=== PATIENT | female | born 1995 | race Caucasian/White ===

== ENCOUNTER 2022-03-16 15:54 | Inpatient (IN) | payer MEDICAID, SELFPAY ==
--- NOTE | ~2022-03-16 | CT_ITS ---
EXAMINATION: CT SOFT TISSUE NECK WITH CONTRAST CLINICAL INFORMATION: Sudden onset of right jaw pain/swelling. COMPARISON: There are no prior studies available for comparison. TECHNIQUE: Following the intravenous administration of 60 mL of Omnipaque 350 intravenous contrast, helical imaging was performed in the axial plane with generation of coronal and sagittal reformatted images. This CT examination was performed using dose optimization techniques as appropriate, variously including the following: *Automated exposure control *Adjustment of mA and/or kV according to patient size (this includes techniques or standardized protocols for targeted exams where dose is matched to indication/reason for exam; i.e. extremities or head) *Use of iterative reconstruction technique DLP: 310 mGy-cm FINDINGS: The right parotid gland is enlarged with heterogenous attenuation, extending over the right masseter muscle. There are no parotid calcifications. There is fluid extending along the left parotid tail down into the posterior right submandibular region. There are moderately prominent right level IB and IIA lymph nodes. There is also increased attenuation in the subcutaneous fat around the right parotid gland extending into the right mandibular region. Small lymph nodes are also noted at multiple levels in the neck bilaterally. The left parotid gland appears normal. The submandibular glands are atrophic bilaterally. No contour abnormality or pathologic enhancement is seen within the oral cavity or pharyngeal mucosal space. The laryngeal structures are normal. The parapharyngeal fat is preserved. The carotid sheath vasculature opacifies normally. No extra mucosal soft tissue mass or fluid collection is seen. No retropharyngeal fluid collection is seen. The thyroid gland is normal. The superior mediastinum is unremarkable. The lung apices are clear. There are a few small axillary lymph nodes bilaterally. The mastoid air cells are well-aerated. There is mild mucoperiosteal thickening in the bilateral maxillary sinuses. There are bilateral middle turbinate conchae bullosae with opacification and aerosolized secretions in the right middle turbinate. The temporomandibular joints are normal. The bilateral mandibular and maxillary 3rd molar teeth are erupting posteriorly. No osseous abnormalities are seen. The imaged portions of the brain parenchyma are unremarkable. CT/CT soft tissue neck w con IMPRESSION: 1. The right parotid gland is swollen, with surrounding fluid extending into the right submandibular gland, consistent with parotid sialoadenitis, and there are inflammatory changes in the subcutaneous fat. There are moderately prominent cervical lymph nodes on the right as described above. 2. Both submandibular glands are atrophic. The left parotid gland appears normal.
[2022-03-16 16:43] VITALS: BP 120/74; PULSE 120; RESP 15; TEMP 37; O2SAT 99; BMI 22.6
--- NOTE | 2022-03-16 19:42 | ED_ITS ---
HPI - General Adult General Chief complaint: General Medical Stated complaint: lump rt outer side of face Time Seen by Provider: 03/16/22 19:01 Source: patient Mode of arrival: ambulatory Limitations: language barrier (Tajik Speaking ) History of Present Illness HPI narrative: 26-year-old female who reports she is up-to-date on all immunizations denies recent travel or sick contacts who denies any medical history presenting to the ED with complaints of swelling to the right side of her face/jaw since yesterda y. She reports that she did not fall and has not had any injury to her face and was not assaulted, she denies any dental pain, she denies any trouble swallowing or breathing, she denies sore throat, she denies any drooling, she denies any posterior neck pain, or measured fevers. She denies any other symptoms complaints or concerns at this time. MD complaint: Right facial/jaw swelling Onset (ago): day(s) (Since yesterday) Location: face Radiation: non-radiation Severity: severe Severity scale (1-10): >10 Quality: aching and constant Pain Consistency: constant Relieving factors: none Exacerbating factors: other (Palpation) Associated symptoms: denies other symptoms Treatments prior to arrival: none Related Data Allergies Allergy/AdvReac Type Severity Reaction Status Date / Time No Known Allergies Allergy Verified 03/16/22 19:23 Review of Systems Review of Systems: Constitutional : + right facial swelling/pain, No Weight loss, No Fever, No Chills, No Night Sweats, No Fatigue, No Malaise ENT/Mouth : No Hearing loss, No Ear Pain, No Nasal Congestion, No Sinus Pain, No Hoarseness, No sore throat, No Rhinorrhea, No Swallowing Difficulty Eyes: No Eye Pain, No Swelling, No Redness, No Foreign Body, No Discharge, No Vision Changes Cardiovascular : No Chest Pain, No SOB, No Dyspnea on Exertion, No Orthopnea, No Edema, No Palpitations Respiratory : No Cough, No Sputum, No Wheezing, No Smoke Exposure, No Dyspnea Gastrointestinal : No Nausea, No Vomiting, No Diarrhea, No Constipation, No abdominal Pain, No Hematochezia, No Melena Genitourinary : no irregular bleeding, No Dysuria, No Urinary Frequency, No Hematuria, No Urinary Incontinence, No Urgency, No Flank Pain, No Urinary Flow Changes, No Hesitancy Musculoskeletal : No joint pain, No Myalgias, No Joint Swelling Skin : No Skin Lesions, No rash Neuro : No Weakness, No Numbness, No Paresthesias, No Loss of Consciousness, No Dizziness, No Headache Psych : No Anxiety/Panic, No Depression, No SI/HI/AH/VH, No Social Issues, Heme/Lymph: No Bruising, No Bleeding,No Lymphadenopathy Endocrine : No Polyuria, No Polydipsia, No Temperature Intolerance Yes all other systems are reviewed and are negative [facility], [facility] Past Medical History Attestation statement: The following information was validated with the patient. Source: old records reviewed and nursing notes reviewed Social History Social History Advance Directives: No Advance Directives Information Provided: No Physical Exam ED Vital Signs: Vital Signs - 24 hr 03/16/22 16:43 Temperature 98.6 F Pulse Rate 120 H Respiratory Rate 15 Blood Pressure 120/74 Pulse Oximetry 99 Oxygen Delivery Method Room Air BMI result Body Mass Index 22.6 vital signs have been reviewed as normal and appeared to be correct. Blood pressure normal. Heart rate 120. Respiration rate normal. Temperature normal. Oxygen saturation normal. Appearance: Alert. Oriented X3. No acute distress. Head: Normal external exam. Normocephalic. Atraumatic. Eyes: PERRLA. EOMI. Conjunctiva and sclera normal. Eyelids normal. ENT: EAC normal. TM's Normal. No tenderness palpation of the mastoids. Not consistent with mastoiditis. Pharynx normal. Uvula midline. Moist mucous membranes. No lesions/ulcerations or masses noted on the tongue. Normal voice. No trismus noted. No drooling noted. No muffled voice noted. Patient has moderate soft tissue swelling/tenderness palpation to the right face/jaw. No streaking/induration/fluctuance noted. Dentition: Patient does not have any dental caries and does not have any signs of dental trauma or dental pain. No erythema to the gingiva. Gingival within normal limits. No fluctuance. Not consistent with peritonsillar abscess. Not consistent with dental abscess. No salivary duct obstruction noted. Neck: Normal inspection. Neck supple. FROM. + right anterior cervical adenopathy. Thyroid Normal. No tracheal deviation noted. No crepitus is noted. No meningeal signs. No neck mass noted. No signs of trauma noted. CVS: Normal heart rate and rhythm. Heart sound normal. Pulses normal throughout. No murmurs/rales/gallops. Respiratory: No respiratory distress. Painless inspiration. Breath sounds normal. No wheezes/rales/rhonchi noted. Chest nontender. No crepitus is noted. No signs of trauma noted. No accessory muscle usage noted or decreased air movement noted. No signs of trauma. Back: Full range of motion noted. Nontender. Skin: Skin warm and dry. Normal skin color. Normal skin turgor. No suzanna hes/lesions/lacerations noted. Extremities: Extremities exhibit normal range of motion and nontender. Neuro: Oriented X 3. No motor deficit. No sensory deficit. Reflexes normal. Normal steady gait. No focal neuro deficits noted. CN's II-XII intact bilaterally? Vascular: + radial pulses/+ 2 distal pedal pulses/+2 dorsalis pedis b/l. Normal cap refill. No cyanosis noted to upper extremity nails and lower extremity toes nails. Course Course Course Narrative: 19:25pm - 26-year-old female presenting to the ED with complaints of swelling to the right side of her face/jaw since yesterday. Plan: Will obtain labs, CT scan of soft tissue neck with contrast, blood cultures, lactic acid in provide 30 mg of IV Toradol provide a L of IV fluids and re-evaluate. Reevaluation(s) Reevaluation #1: - labs reviewed patient with an elevated white blood cell count at 12,000. BUN 8. Total bilirubin 1.4. Total protein 9.8. Otherwise all other labs are within normal limits - CT scan of soft tissue neck revealed right parotid sialoadenitis with inflammatory changes and cervical lymphadenopathy on right side. No stone is noted. No abscess is noted. Therefore at this time will start the patient on Zosyn due to infection found at this time and admit. Patient understands agrees with this plan. Discussing this case with Dr. Hannon Time: 21:20 Medical Decision Making Medical Records Medical records reviewed: Yes I reviewed the patient's medical records. Lab Data Lab results reviewed: Yes I reviewed the patient's lab results. Result diagrams: 03/16/22 19:43 03/16/22 19:43 Labs: Lab Results 03/16/22 03/16/22 03/16/22 Range/Units 19:43 19:43 19:43 WBC 12.0 H (4.8-10.8) X10*3/uL RBC 5.00 (4.20-5.50) X10*6/uL Hgb 13.9 (12.0-16.0) g/dl Hct 42.6 (37.0-47.0) % MCV 85.2 (80.0-98.0) fL MCH 27.8 (27.0-33.0) pg MCHC 32.6 (31.0-35.0) g/dl RDW 13.2 (11.0-16.0) % Plt Count 262 (160-400) X10*3/uL MPV 10.2 (9.4-12.3) fL Immature Gran % (Auto) 0.3 (0.0-0.4) % Neut % (Auto) 84.0 H (45-73) % Lymph % (Auto) 10.1 L (20-40) % [place] % (Auto) 5.2 (2-11) % Eos % (Auto) 0.2 (0-4) % Baso % (Auto) 0.2 (0-2) % Lymph # (Auto) 1.2 (1.2-4.9) X10*3/uL [place] # (Auto) 0.6 (0.1-1.2) X10*3/uL Eos # (Auto) 0.0 (0.0-0.4) X10*3/uL Baso # (Auto) 0.0 (0.0-0.2) X10*3/uL Abs Immat Gran (auto) 0.04 H (0.00-0.03) X10*3/uL Absolute Neuts (auto) 10.1 H (2.0-8.3) x10*3/uL Absolute Nucleated RBC 0.000 (0.0-0.012) X10*3/uL Nucleated RBC % (auto) 0.0 (0.0-0.2) /100WBC Sodium 135 (135-145) mmol/L Potassium 3.8 (3.3-5.1) mmol/L Chloride 103 (96-108) mmol/L Carbon Dioxide 22 (22-29) mmol/L Anion Gap 14 (12-20) BUN 8 L (9-16) mg/dL Creatinine 0.75 (0.5-1.4) mg/dL Estim Creat Clear Calc 87.2 Estimated GFR > 60 Random Glucose 80 (60-115) mg/dL Lactic Acid 1.0 (0.5-2.0) mmol/L Calcium 9.0 (8.4-10.2) mg/dL Magnesium 2.0 (1.6-2.6) mg/dL Total Bilirubin 1.4 H (0.0-1.0) mg/dL AST 21 (5-31) U/L ALT 10 (0-31) U/L Alkaline Phosphatase 70 (39-117) U/L Total Protein 9.8 H (6.5-8.0) g/dL Albumin 4.5 (3.5-5.0) g/dL Beta HCG, Quant < 2 mIU/mL Imaging Data Soft tissue neck CT with IV contrast: Attestation: I personally reviewed and interpreted this imaging study as follows: Radiologist's impression: FINDINGS: The right parotid gland is enlarged with heterogenous attenuation, extending over the right masseter muscle. There are no parotid calcifications. There is fluid extending along the left parotid tail down into the posterior right submandibular region. There are moderately prominent right level IB and IIA lymph nodes. There is also increased attenuation in the subcutaneous fat around the right parotid gland extending into the right mandibular region. Small lymph nodes are also noted at multiple levels in the neck bilaterally. The left parotid gland appears normal. The submandibular glands are atrophic bilaterally. No contour abnormality or pathologic enhancement is seen within the oral cavity or pharyngeal mucosal space. The laryngeal structures are normal. The parapharyngeal fat is preserved. The carotid sheath vasculature opacifies normally. No extra mucosal soft tissue mass or fluid collection is seen. No retropharyngeal fluid collection is seen. The thyroid gland is normal. The superior mediastinum is unremarkable. The lung apices are clear. There are a few small axillary lymph nodes bilaterally. The mastoid air cells are well-aerated. There is mild mucoperiosteal thickening in the bilateral maxillary sinuses. There are bilateral middle turbinate conchae bullosae with opacification and aerosolized secretions in the right middle turbinate. The temporomandibular joints are normal. The bilateral mandibular and maxillary 3rd molar teeth are erupting posteriorly. No osseous abnormalities are seen. The imaged portions of the brain parenchyma are unremarkable. CT/CT soft tissue neck w con IMPRESSION: ?1. The right parotid gland is swollen, with surrounding fluid extending into the right submandibular gland, consistent with parotid sialoadenitis, and there are inflammatory changes in the subcutaneous fat. There are moderately prominent cervical lymph nodes on the right as described above. ? 2. Both submandibular glands are atrophic. The left parotid gland appears normal. Critical Care Time Critical Care Time Critical Care Time: Yes Total Critical Care Time: 60 Attestation: I personally attest to this time spent taking care of the patient Discharge Plan Discharge Clinical Impression: Acute sialoadenitis Patient Disposition: Admitted As Inpatient
[2022-03-16] MEDS: Ketorolac Tromethamine 30 MG/ML VIAL IVPUSH (19:47)
[2022-03-16 19:50] LABS: MANUAL DIFF FLAG NO
[2022-03-16 19:51] LABS: Basophils Percent Auto 0.2 % (0-2); Eosinophils Percent Auto 0.2 % (0-4); Hematocrit 42.6 % (37.0-47.0); Hemoglobin 13.9 g/dl (12.0-16.0); Imm Gran Abs Auto 0.04 X10*3/uL (0.00-0.03); Imm Gran Pct Auto 0.3 % (0.0-0.4); Lymphocytes Absolute Auto 1.2 X10*3/uL (1.2-4.9); Lymphocytes Percent Auto 10.1 % (20-40); Mean Corpuscular HGB Conc 32.6 g/dl (31.0-35.0); Mean Corpuscular Hemoglobin 27.8 pg (27.0-33.0); Mean Corpuscular Volume 85.2 fL (80.0-98.0); Mean Platelet Volume 10.2 fL (9.4-12.3); Monocytes Absolute Auto 0.6 X10*3/uL (0.1-1.2); Monocytes Percent Auto 5.2 % (2-11); Neutrophils Absolute Auto 10.1 x10*3/uL (2.0-8.3); Platelet Count 262 X10*3/uL (160-400); Red Cell Distribution Width 13.2 % (11.0-16.0)
[2022-03-16 20:10] LABS: Alanine Aminotransferase 10 U/L (0-31); Albumin Level 4.5 g/dL (3.5-5.0); Alkaline Phosphatase 70 U/L (39-117); Anion Gap 14 (12-20); Aspartate Amino Transferase 21 U/L (5-31); Bilirubin Total 1.4 mg/dL (0.0-1.0); Blood Urea Nitrogen 8 mg/dL (9-16); Carbon Dioxide 22 mmol/L (22-29); Chloride 103 mmol/L (96-108); Creatinine Clr Calc Pharmacy 87.2; Estimated Glomerular Filt Rate > 60; Glucose Random 80 mg/dL (60-115); Potassium 3.8 mmol/L (3.3-5.1); Sodium 135 mmol/L (135-145); Total Protein 9.8 g/dL (6.5-8.0)
[2022-03-16 20:17] LABS: HCG Quantitative < 2 mIU/mL
[2022-03-16] MEDS: iohexoL 350 MG/ML 100 ML INFUS..BTL IV (20:40)
[2022-03-16] MEDS: 0.9 % Sodium Chloride 1,000 ML 999 ML IVCONT (21:10)
[2022-03-16] MEDS: Piperacillin Sodium/Tazobactam 2.25 GM in 0.9 % Sodium Chloride 50 ML IV (21:37)
--- NOTE | 2022-03-16 21:57 | PHA.MEDREC ---
Pharmacy Consult ? Medication Reconciliation Pharmacy has completed the medication reconciliation.
--- NOTE | 2022-03-16 23:46 | P.HPHOSP_ITS ---
History of Present Illness Date of Service: 03/16/22 Chief Complaint: mouth swelling 26-year-old female who speaks [place] Rican only, history is obtained with the help of an analytics intern presents to the hospital with complaints of right jaw, as well as behind the ear pain. Reports that the pain started 2 days ago, 06/27, nonradiating, constant, not associated with any difficulty swallowing, denies any fever chills. no chest pain, shortness of breath, no abdominal pain nausea vomiting, diarrhea constipation, no urinary symptoms and no lower extremity edema. On arrival to the ED patient found to have a heart rate of 120 otherwise unremarkable vitals Labs are significant for WBC count of 12, labs otherwise unremarkable Soft tissue neck CT showed right parotid gland swollen, surrounding fluid extending into the right submandibular gland consistent with parotid sialoadenitis and phlegm a edgar changes of the subcutaneous fat. Patient started on IV antibiotics and will be admitted for further management Review of Systems Review of Systems: Yes all other systems are reviewed and are negative [facility] Medical History (Updated 03/17/22 @ 06:18 by Tameka Hannon MD) No pertinent past medical history Family History (Updated 03/17/22 @ 06:18 by Tameka Hannon MD) Other No family history of coronary artery disease Surgical History (Updated 03/17/22 @ 06:18 by Tameka Hannon MD) No pertinent past surgical history Social History (Updated 03/17/22 @ 06:18 by Tameka Hannon MD) Alcohol intake: current Patient Tobacco Use Status: Never used Tobacco Use of substances other than those prescribed or required for medical reasons: No Advance Directives: No Advance Directives Information Provided: No Meds Allergies Allergy/AdvReac Type Severity Reaction Status Date / Time No Known Allergies Allergy Verified 03/16/22 19:23 Active Medications: Current Medications Pharmacy Consult (Consult Rx Perform Med Rec) 1 each MISCELLANE ONCE PRN PRN Reason: Consult order Physical Exam Vital Signs and Narrative: Vital Signs: Last Vital Signs Temp 98.6 F 03/16/22 16:43 Pulse 120 H 03/16/22 16:43 Resp 15 03/16/22 16:43 BP 120/74 03/16/22 16:43 Pulse Ox 99 03/16/22 16:43 O2 Del Method 03/16/22 16:43 BMI result Body Mass Index 22.6 Const: General: cooperative and no acute distress Orientation/consciousness: patient oriented x3 HEENT: Other: Swollen right, tender on palpation around the parotid to the submandibular region Eyes: General: appearance normal, both eyes and all related structures Pupils: Equal, round and reactive pupils present Resp: Effort & Inspection: normal respiratory effort Auscultation: clear to auscultation bilaterally Cardio: Rate: regular rate Rhythm: regular rhythm GI: Palpation (GI): Soft to palpation Auscultation: normal bowel sounds Skin: General skin exam: no rashes or lesions noted Neuro: General: patient oriented x3 Cranial nerves: Yes Equal, round and reactive pupils present Cognition (Neuro): normal cognition Extrem: General: Yes normal to inspection and Yes no pedal edema Results Labs CBC and Chem 7: 03/16/22 19:43 03/16/22 19:43 Labs: Laboratory Results - last 24 hr 03/16/22 03/16/22 03/16/22 19:43 19:43 19:43 MCV 85.2 MCH 27.8 MCHC 32.6 RDW 13.2 Plt Count 262 MPV 10.2 Immature Gran % (Auto) 0.3 Neut % (Auto) 84.0 H Lymph % (Auto) 10.1 L [place] % (Auto) 5.2 Eos % (Auto) 0.2 Baso % (Auto) 0.2 Lymph # (Auto) 1.2 [place] # (Auto) 0.6 Eos # (Auto) 0.0 Baso # (Auto) 0.0 Abs Immat Gran (auto) 0.04 H Absolute Neuts (auto) 10.1 H Absolute Nucleated RBC 0.000 Nucleated RBC % (auto) 0.0 Anion Gap 14 Estim Creat Clear Calc 87.2 Estimated GFR > 60 Random Glucose 80 Lactic Acid 1.0 Calcium 9.0 Magnesium 2.0 Total Bilirubin 1.4 H AST 21 ALT 10 Alkaline Phosphatase 70 Total Protein 9.8 H Albumin 4.5 Beta HCG, Quant < 2 Imaging Radiologist's Impressions: Impressions Soft Tissue Neck CT 03/16/22 20:44 IMPRESSION: 1. The right parotid gland is swollen, with surrounding fluid extending into the right submandibular gland, consistent with parotid sialoadenitis, and there are inflammatory changes in the subcutaneous fat. There are moderately prominent cervical lymph nodes on the right as described above. 2. Both submandibular glands are atrophic. The left parotid gland appears normal. Assessment and Plan (1) Acute sialoadenitis: Status: Acute Plan 26-year-old female with no past medical history presents to the hospital with complaints of right face swelling and pain found to have parotid gland sialoadenitis # acute Sialoadentitis - hemodynamically stable, has tachycardia, leukocytosis - wheelchair with IV antibiotics - follow cultures DVT prophylaxis: Early ambulation Quality Stroke Does the patient have a stroke diagnosis?: No VTE Prior VTE?: No VTE Risk Level:: Medical - low VTE Device Contraindication: Treatment Not Indicated VTE Drug Contraindication: Treatment Not Indicated
[2022-03-17] MEDS: Ampicillin Sodium/Sulbactam Na 3 GM in 0.9 % Sodium Chloride 100 ML IV ×3 (00:11→18:28)
[2022-03-17 01:07] LABS: COVID-19 Test Negative (Negative); IDNOW Serial# 16C4AD1C
[2022-03-17] MEDS: metroNIDAZOLE/NS 500 MG/100 ML PIGGYBACK 100 MG IV ×3 (01:43→19:07)
[2022-03-17 02:21] VITALS: BP 109/65; PULSE 105; RESP 18; TEMP 37.4; O2SAT 100
[2022-03-17 06:19] VITALS: BP 95/45; PULSE 87; RESP 18; TEMP 37.8; O2SAT 99
[2022-03-17] MEDS: Acetaminophen 325 MG TABLET 650 MG PO (06:28)
[2022-03-17 06:30] LABS: MANUAL DIFF FLAG NO
[2022-03-17 06:49] LABS: Basophils Percent Auto 0.3 % (0-2); Eosinophils Percent Auto 0.4 % (0-4); Hemoglobin 11.4 g/dl (12.0-16.0); Imm Gran Abs Auto 0.03 X10*3/uL (0.00-0.03); Imm Gran Pct Auto 0.4 % (0.0-0.4); Lymphocytes Percent Auto 12.9 % (20-40); Mean Corpuscular HGB Conc 32.6 g/dl (31.0-35.0); Mean Corpuscular Hemoglobin 27.7 pg (27.0-33.0); Mean Corpuscular Volume 85.2 fL (80.0-98.0); Mean Platelet Volume 10.4 fL (9.4-12.3); Monocytes Absolute Auto 0.5 X10*3/uL (0.1-1.2); Monocytes Percent Auto 6.5 % (2-11); Neutrophils Percent Auto 79.5 % (45-73); Platelet Count 203 X10*3/uL (160-400); Red Blood Count 4.11 X10*6/uL (4.20-5.50); Red Cell Distribution Width 13.2 % (11.0-16.0); White Blood Count 7.6 X10*3/uL (4.8-10.8)
[2022-03-17 07:07] LABS: Anion Gap 10 (12-20); Blood Urea Nitrogen 8 mg/dL (9-16); Carbon Dioxide 21 mmol/L (22-29); Chloride 108 mmol/L (96-108); Creatinine Clr Calc Pharmacy 93.5; Estimated Glomerular Filt Rate > 60; Glucose Random 83 mg/dL (60-115); Potassium 3.9 mmol/L (3.3-5.1); Sodium 135 mmol/L (135-145)
[2022-03-17 07:28] LABS: Calcium 8.3 mg/dL (8.4-10.2)
--- NOTE | 2022-03-17 08:57 | PM.DS ---
DS: Providers Provider Date of Service: 03/19/22 Date of admission: 03/17/22 04:24 Primary care physician: None Physician DS: Diagnosis Discharge Diagnosis (1) Acute sialoadenitis: Status: Acute DS: Summary Hospital Course Hospital Course: Chief Complaint: mouth swelling 26-year-old female who speaks Swedish only, history is obtained with the help of an director of math presents to the hospital with complaints of right jaw, as well as behind the ear pain.? Reports that the pain started 2 days ago, 06/27, nonradiating, constant, not associated with any difficulty swallowing, denies any fever chills.? ?no chest pain, shortness of breath, no abdominal pain nausea vomiting, diarrhea constipation, no urinary symptoms and no lower extremity edema.? On arrival to the ED patient found to have a heart rate of 120 otherwise unremarkable vitals Labs are significant for WBC count of 12, labs otherwise unremarkable Soft tissue neck CT showed right parotid gland swollen, surrounding fluid extending into the right submandibular gland consistent with parotid sialoadenitis and phlegm a edgar changes of the subcutaneous fat. Hospital course; Patient was observed in the hospital and given IV Unassyn, there is no swelling in the mouth, she has been having intermittent fever that has now resolved and no fever over 24 hours. The swelling is going down, she has no trouble breathing or eating, WBC has normalized now, there is no fever. Will transition to oral antibiotics (Augmentin) for 7 days and advise outpatient ENT follopw up. Oxycodone for pain as needed Time Spent with Patient Time attestation: Total time spent providing and/or coordinating discharge services: Discharge coordination time: Greater than 30 minutes Quality: Safe Use of Opioids Does Pt have an Active Cancer Diagnosis on the Problem List?: No Quality: Stroke Does the patient have a stroke diagnosis?: No Physical Exam Vital Signs: Vital Signs: Last Vital Signs Temp 100.1 F 03/17/22 06:19 Pulse 87 03/17/22 06:19 Resp 18 03/17/22 06:19 BP 95/45 L 03/17/22 06:19 Pulse Ox 99 03/17/22 06:19 O2 Del Method 03/17/22 06:19 BMI result Body Mass Index 22.6 Const: Other: General: AO X 3, no acute distress HEENT: slight swelling of right jaw area Resp: CTA bilateral CVS: S1,S2,RRR GI: +BS, NT, no distention Skin: No rash Neuro: motor grossly intact Psych: appropriate affect DS: Data Data Completed and Pending Labs on day of discharge: Laboratory Results - last 24 hr 03/16/22 03/16/22 03/16/22 19:43 19:43 19:43 WBC 12.0 H RBC 5.00 Hgb 13.9 Hct 42.6 MCV 85.2 MCH 27.8 MCHC 32.6 RDW 13.2 Plt Count 262 MPV 10.2 Immature Gran % (Auto) 0.3 Neut % (Auto) 84.0 H Lymph % (Auto) 10.1 L [place] % (Auto) 5.2 Eos % (Auto) 0.2 Baso % (Auto) 0.2 Lymph # (Auto) 1.2 [place] # (Auto) 0.6 Eos # (Auto) 0.0 Baso # (Auto) 0.0 Abs Immat Gran (auto) 0.04 H Absolute Neuts (auto) 10.1 H Absolute Nucleated RBC 0.000 Nucleated RBC % (auto) 0.0 Sodium 135 Potassium 3.8 Chloride 103 Carbon Dioxide 22 Anion Gap 14 BUN 8 L Creatinine 0.75 Estim Creat Clear Calc 87.2 Estimated GFR > 60 Random Glucose 80 Lactic Acid 1.0 Calcium 9.0 Magnesium 2.0 Total Bilirubin 1.4 H AST 21 ALT 10 Alkaline Phosphatase 70 Total Protein 9.8 H Albumin 4.5 Beta HCG, Quant < 2 COVID-19 ([facility]) COVID-19 Clin Com 03/17/22 03/17/22 03/17/22 00:41 06:24 06:24 WBC 7.6 RBC 4.11 L Hgb 11.4 L Hct 35.0 L MCV 85.2 MCH 27.7 MCHC 32.6 RDW 13.2 Plt Count 203 MPV 10.4 Immature Gran % (Auto) 0.4 Neut % (Auto) 79.5 H Lymph % (Auto) 12.9 L [place] % (Auto) 6.5 Eos % (Auto) 0.4 Baso % (Auto) 0.3 Lymph # (Auto) 1.0 L [place] # (Auto) 0.5 Eos # (Auto) 0.0 Baso # (Auto) 0.0 Abs Immat Gran (auto) 0.03 Absolute Neuts (auto) 6.0 Absolute Nucleated RBC 0.000 Nucleated RBC % (auto) 0.0 Sodium 135 Potassium 3.9 Chloride 108 Carbon Dioxide 21 L Anion Gap 10 L BUN 8 L Creatinine 0.70 Estim Creat Clear Calc 93.5 Estimated GFR > 60 Random Glucose 83 Lactic Acid Calcium 8.3 L D Magnesium Total Bilirubin AST ALT Alkaline Phosphatase Total Protein Albumin Beta HCG, Quant COVID-19 ([facility]) Negative COVID-19 Clin Com See Note Discharge Plan Discharge Anticipated Discharge Date/Time: 03/19/22 08:47 Patient Disposition: Home, Self-Care Discharge Diagnosis: acute sialoadenitis Referrals: Physician,None [Primary Care Provider] - 1 Week Discharge Medications: New oxycodone 5 mg Tablet 5 mg PO Q6H PRN (Reason: Pain, Severe (Pain Scale 7-10)) Qty: 15 0RF Rx Instructions: Partial Fill upon patient request. amoxicillin-pot clavulanate 875-125 mg tablet 1 tab PO BID Qty: 14 0RF Discharge Orders: Discharge Order (Routine); Ordered 03/19/22 Ordered By: Bill Rivas Diet: Advance to usual diet Activity on Discharge: As tolerated Stand Alone Forms: Patient Portal Discharge page Care Plan Goals: Full recovery from sialodenitis Health Concerns: sialodenitis Plan of Treatment: Take Agumentin as recommending, take oxycodone for pain, follow up with your DrDenis and ENT doctor, come to emergency if you have any trouble eating, swallowing of breathing Call ENT Dr. Kwok's office on Monday for outpatient number [phone].. Assessment: As above
[2022-03-17] MEDS: 0.9 % Sodium Chloride Flush 3 ML SYRINGE IVFLUSH ×2 (09:15→18:38)
[2022-03-17] MEDS: oxyCODONE HCl Immed Release 5 MG TABLET PO ×2 (10:36→23:47)
--- NOTE | 2022-03-17 10:45 | PM.EVENT ---
Event Note Date of Service: 03/17/22 Event Note: Has persistent pain and temps increasing, so will watch on IV Abx overnight
[2022-03-17 12:06] VITALS: BP 101/59; PULSE 98; RESP 17; TEMP 36.9; O2SAT 100
[2022-03-17 13:00] VITALS: RESP 17
--- NOTE | 2022-03-17 13:32 | MHC.CM.PN ---
PT REPORTS SHE LIVES WITH A FRIEND AND IS FULLY INDEPENDENT PT HAS NO DME, NO SERVICES AND WORKS PT CASE[place] NOT HAVE HEALTH INSURANCE OR A PCP SHE IS AWARE A REFERRAL WILL BE SENT TO [facility] [place] [facility] CURRENT DC PLAN IS HOME WITH NO SERVICES PT TO ARRANGE TRANSPORT
--- NOTE | 2022-03-17 16:15 | PC.NURSE ---
SPOKE WITH WITH TIMBER RIDER, PT IS GOING TO BE DISCHARGED. AWAITING FOR DR BLACK FOR DISCHARGE.
[2022-03-17 18:34] VITALS: BP 114/50; PULSE 108; RESP 18; TEMP 37.7; O2SAT 100
[2022-03-18] VITALS: BP 93/57; PULSE 97; RESP 17; TEMP 38.5; O2SAT 96
[2022-03-18] MEDS: Ampicillin Sodium/Sulbactam Na 3 GM in 0.9 % Sodium Chloride 100 ML IV ×3 (00:57→16:47)
[2022-03-18] MEDS: 0.9 % Sodium Chloride Flush 3 ML SYRINGE IVFLUSH ×3 (00:57→12:10)
[2022-03-18] MEDS: metroNIDAZOLE/NS 500 MG/100 ML PIGGYBACK 100 MG IV ×2 (02:49→10:25)
[2022-03-18 03:58] VITALS: BP 97/57; PULSE 96; RESP 18; TEMP 38.2; O2SAT 98
[2022-03-18 07:56] VITALS: BP 93/51; PULSE 76; RESP 18; TEMP 38.7; O2SAT 98
[2022-03-18] MEDS: Acetaminophen 325 MG TABLET 650 MG PO (09:29)
--- NOTE | 2022-03-18 09:41 | P.PNIM_ITS ---
Subjective Subjective Date of Service: 03/18/22 Interval History: f/u on parotitis interval history: persitent fever up to 101 this morning Review of Systems right jaw pain Physical Exam Vital Signs: Vital Signs: Last Vital Signs Temp 101.6 F H 03/18/22 07:56 Pulse 76 03/18/22 07:56 Resp 18 03/18/22 07:56 BP 93/51 L 03/18/22 07:56 Pulse Ox 98 03/18/22 07:56 O2 Del Method 03/18/22 07:56 BMI result Body Mass Index 22.6 Const: Other: General: AO X 3, no acute distress HEENT: slight swelling of right jaw area Resp: CTA bilateral CVS: S1,S2,RRR GI: +BS, NT, no distention Skin: No rash Neuro: motor grossly intact Psych: appropriate affect Objective Data Active Medications Acetaminophen (Acetaminophen 325 Mg Tablet) 650 mg PO Q6H PRN PRN Reason: Pain, Mild (Pain Scale 1-3) Last Admin: 03/18/22 09:29 Dose: 650 mg Documented By: YANG Metronidazole (Flagyl) 500 mg in 100 mls @ 100 mls/hr IV Q8H [facility] Last Infusion: 03/18/22 03:59 Dose: 0 mls/hr Documented By: TRACI Ampicillin Sodium/Sulbactam (Sodium 3 gm/ Sodium Chloride) 100 mls @ 200 mls/hr IV Q8H [facility] Last Admin: 03/18/22 09:26 Dose: 200 mls/hr Documented By: YANG Ondansetron HCl (Ondansetron Hcl 4 Mg/2 Ml Vial) 4 mg IVPUSH Q8H PRN PRN Reason: Nausea and Vomiting Oxycodone HCl (Oxycodone Hcl Immed Release 5 Mg Tablet) 5 mg PO Q6H PRN PRN Reason: Pain, Severe (Pain Scale 7-10) Last Admin: 03/17/22 23:47 Dose: 5 mg Documented By: MARI Pharmacy Consult (Consult Rx Perform Med Rec) 1 each MISCELLANE ONCE PRN PRN Reason: Consult order Sodium Chloride (0.9 % Sodium Chloride Flush 3 Ml Syringe) 3 ml IVFLUSH QSHIFT [facility] Last Admin: 03/18/22 09:27 Dose: 3 ml Documented By: YANG Labs CBC & Chem 7: 03/17/22 06:24 03/17/22 06:24 Microbiology Microbiology Results: Microbiology 03/16/22 20:17 Blood Culture - Preliminary Blood - Venous No growth after 24 hours. 03/16/22 19:43 Blood Culture - Preliminary Blood - Venous No growth after 24 hours. Assessment and Plan (1) Acute sialoadenitis: Status: Acute Plan 26-year-old female with no past medical history presents to the hospital with complaints of right face swelling and pain found to have parotid gland sialoadenitis # acute Sialoadentitis/parotitiis - hemodynamically stable, has tachycardia, leukocytosis - continue IV Zosyn and Metronidazole - fnegative cultures at 24 -ID consult DVT prophylaxis: Early ambulation Quality Stroke Does the patient have a stroke diagnosis?: No VTE Prior VTE?: No VTE Risk Level:: Medical - low VTE Device Contraindication: Treatment Not Indicated VTE Drug Contraindication: Treatment Not Indicated
[2022-03-18 12:00] VITALS: BP 104/57; PULSE 78; RESP 18; TEMP 36.6; O2SAT 99
--- NOTE | 2022-03-18 12:55 | P.CNID_ITS ---
History of Present Illness Data of Consult Service Date: 03/18/22 Requesting physician: Bill Rivas Primary Care Provider: None Physician HPI Reason for consult: sepsis,parotitis She presents with two days swelling and pain right cheek. She has CT right parotid sialodenitis and enlargement with fluid. Overnight she has temperature of 101.3 and pulse 108. Review of Systems Review of Systems: Yes all other systems are reviewed and are negative PMFSH Past Medical History Medical History (Updated 03/18/22 @ 12:58 by Rosaura Sosa MD) No pertinent past medical history Sepsis Family History Family History Other No family history of coronary artery disease Family history: reviewed and not pertinent Surgical History Surgical History No pertinent past surgical history Social History Social History Household Members: Family Housing: Apartment Do you presently have visiting nurse or other home services: No Alcohol intake: current Patient Tobacco Use Status: Never used Tobacco service: No Current occupational status: employed Meds Allergies Allergy/AdvReac Type Severity Reaction Status Date / Time No Known Allergies Allergy Verified 03/16/22 19:23 Active Medications: Current Medications Acetaminophen (Acetaminophen 325 Mg Tablet) 650 mg PO Q6H PRN PRN Reason: Pain, Mild (Pain Scale 1-3) Last Admin: 03/18/22 09:29 Dose: 650 mg Ampicillin Sodium/Sulbactam (Sodium 3 gm/ Sodium Chloride) 100 mls @ 200 mls/hr IV Q8H [facility] Last Infusion: 03/18/22 11:00 Dose: Infused Ondansetron HCl (Ondansetron Hcl 4 Mg/2 Ml Vial) 4 mg IVPUSH Q8H PRN PRN Reason: Nausea and Vomiting Oxycodone HCl (Oxycodone Hcl Immed Release 5 Mg Tablet) 5 mg PO Q6H PRN PRN Reason: Pain, Severe (Pain Scale 7-10) Last Admin: 03/17/22 23:47 Dose: 5 mg Pharmacy Consult (Consult Rx Perform Med Rec) 1 each MISCELLANE ONCE PRN PRN Reason: Consult order Sodium Chloride (0.9 % Sodium Chloride Flush 3 Ml Syringe) 3 ml IVFLUSH QSHIFT [facility] Last Admin: 03/18/22 12:10 Dose: 3 ml Physical Exam Vital Signs: Vital Signs: Last Vital Signs Temp 98 F 03/18/22 12:00 Pulse 78 03/18/22 12:00 Resp 18 03/18/22 12:00 BP 104/57 L 03/18/22 12:00 Pulse Ox 99 03/18/22 12:00 O2 Del Method 03/18/22 12:00 BMI result Body Mass Index 22.6 Const: General: cooperative HEENT: Other: right parotid facial swelling and pain,can open mouth Mouth: Normal oral and palatal mucosa present Teeth and gingiva: dentition normal Eyes: General: appearance normal, both eyes and all related structures Pupils: Equal, round and reactive pupils present Resp: Effort & Inspection: normal respiratory effort Cardio: Rate: regular rate Rhythm: regular rhythm GI: Palpation (GI): Soft to palpation and nontender : General: Yes no CVA tenderness Back/Spine/Pelvis: Back: no CVA tenderness Skin: General skin exam: no rashes or lesions noted Neuro: General: moves all extremities Cranial nerves: Yes Equal, round and reactive pupils present Extrem: General: Yes normal to inspection Psych: Appearance: grossly normal Results Labs CBC & Chem 7: 03/17/22 06:24 03/17/22 06:24 Microbiology Microbiology Results: Microbiology 03/16/22 20:17 Blood - Venous Blood Culture - Preliminary No growth after 24 hours. 03/16/22 19:43 Blood - Venous Blood Culture - Preliminary No growth after 24 hours. Assessment and Plan (1) Acute sialoadenitis: Status: Acute (2) Sepsis: Status: Acute patient has fever to 101 and pulse 108 sialdodenitis with fever likely cause she has been on unasyn,rarely MRSA cause HIV can be cause Plan Would continue Unasyn If temperature over 100.5 would add Vancomycin. Check HIV test Probable Augmentin for a week with outpatient followup when improved (no temp above 100.5 for 24 hours)
[2022-03-18 16:00] VITALS: BP 100/61; PULSE 83; RESP 16; TEMP 37.1; O2SAT 99
[2022-03-18 20:00] VITALS: BP 101/62; PULSE 89; RESP 16; TEMP 37.4; O2SAT 98
[2022-03-19] VITALS: BP 96/61; PULSE 90; RESP 14; TEMP 37.4; O2SAT 100
[2022-03-19] MEDS: Ampicillin Sodium/Sulbactam Na 3 GM in 0.9 % Sodium Chloride 100 ML IV (02:55)
[2022-03-19] MEDS: 0.9 % Sodium Chloride Flush 3 ML SYRINGE IVFLUSH (02:55)
[2022-03-19 03:55] VITALS: BP 95/61; PULSE 94; RESP 16; TEMP 37.3; O2SAT 99
[2022-03-19 08:00] VITALS: BP 100/61; PULSE 106; RESP 18; TEMP 37.3; O2SAT 100
--- NOTE | 2022-03-19 10:08 | MHC.CM.PN ---
PT MEDICALLY CLEARED FOR D/C HOME NO SERVICES, PT WILL ARRANGE TRANSPORT
[2022-03-22 04:07] LABS: HIV AB/AG Nonreactive (Nonreactive)
== END 2022-03-19 11:20 | disposition home or self-care (01) | DRG 115 ==
LOC: HO.ED 21:23 → HO.EDOVER 03-17 04:29 → HO.S3 03-17 22:38
PROVIDERS: Internal Medicine; Physician Assistant Medical; Admitting Provider Internal Medicine; Emergency Provider Emergency Medicine; Visit Provider Internal Medicine
DX: K11.21 Acute sialoadenitis (principal); Z20.822 Contact with and (suspected) exposure to COVID-19
CPT/HCPCS: 36415; 70491; 80048; 80053; 83605; 83735; 84702; 85025; 87040; 87389; 87635; 96361; 96374; 96375; 99218; 99285; J0295; J1885; J2543; Q9967

== ENCOUNTER 2022-03-27 14:14 | Emergency (ER) | payer MEDICAID, SELFPAY ==
[2022-03-27 14:16] VITALS: BP 109/69; PULSE 73; RESP 16; TEMP 36.9; O2SAT 99; BMI 20.9
--- NOTE | 2022-03-27 14:47 | ED_ITS ---
HPI - Allergic Reaction General Chief complaint: Allergic Reaction Stated complaint: RASH Time Seen by Provider: 03/27/22 14:35 Source: patient and spanish interpreter/translator Mode of arrival: ambulatory Limitations: no limitations History of Present Illness HPI narrative: 26 yo female presents to the ER with rash and hives all over her body for the last 3 days. She states she 1st noticed redness and rash on her right ear and he r face 3 days ago. She took Benadryl and it went away. The next day she developed a red, raised and itchy rash all over her body, mostly on her trunk and arms. She has been taking benaryl every 8 hours with some improvement in the itching. Denies any new detergents, soaps or lotions. No fever or chills. No oral lesions. Of note patient reports she was seen here 1 week ago for a swollen gland and was given a prescription for amoxicillin, she stopped taking it 2 days ago because of the rash. MD complaint: allergic reaction and hives Onset (ago): day(s) (3) Exposure: medication Symptoms: rash and itching Severity: moderate Treatment prior to arrival: benadryl Previous Allergic Reaction History: none Related Data Previous Rx's Medication Instructions Recorded amoxicillin 875 mg-potassium 1 tab PO BID #14 tabs 03/17/22 clavulanate 125 mg tablet oxycodone 5 mg tablet 5 mg PO Q6H PRN Pain, Severe (Pain 03/17/22 Scale 7-10) #15 tabs prednisone 20 mg tablet 40 mg PO DAILY #10 tabs 03/27/22 Allergies Allergy/AdvReac Type Severity Reaction Status Date / Time No Known Allergies Allergy Verified 03/27/22 14:19 Review of Systems Review of Systems: Constitutional: No Fever, No Chills ENT/Mouth: No sore throat, No Rhinorrhea, No Swallowing Difficulty Eyes: No Eye Pain, No Swelling, No Redness Cardiovascular: No Chest Pain, No SOB, No Orthopnea, No Edema Respiratory: No Cough, No Sputum, No Wheezing, No dyspnea Gastrointestinal: No Nausea, No Vomiting, No Diarrhea, No abdominal Pain Musculoskeletal: No joint pain, No Myalgias Skin: No Skin Lesions, + rash Neuro: No Weakness, No Numbness, No Dizziness, No Headache Psych: +Anxiety/Panic Heme/Lymph: No Bruising, + Lymphadenopathy PMFSH Past Medical History Medical History (Updated 03/27/22 @ 14:48 by ANDRE Cisneros) No pertinent past medical history Sepsis Surgical History No pertinent past surgical history Family History Family History Other No family history of coronary artery disease Social History Social History Household Members: Family Housing: Apartment Do you presently have visiting nurse or other home services: No Alcohol intake: current Patient Tobacco Use Status: Never used Tobacco Advance Directives: No Advance Directives Information Provided: Yes service: No Current occupational status: employed Physical Exam ED Vital Signs: Vital Signs - 24 hr 03/27/22 14:16 Temperature 98.5 F Pulse Rate 73 Respiratory Rate 16 Blood Pressure 109/69 Pulse Oximetry 99 Oxygen Delivery Method Room Air BMI result Body Mass Index 20.9 Appearance: Alert. Oriented X3. No acute distress. Eyes: Pupils equal, round and reactive to light. ENT: Pharynx normal. Neck: Normal inspection. Neck supple. No LAD appreciated. CVS: Normal heart rate and rhythm. Pulses normal. Respiratory: No respiratory distress. Breath sounds normal. Abdomen: Soft and nontender. +BS x4 Skin: Skin warm and dry. Normal skin color. Normal skin turgor. Diffuse scattered erythematous, raised urticarial rash on the anterior and posterior trunk and bilateral arms. No facial involvement or involvement of the mouth, palms or soles. Extremities: No lower extremity edema. Neuro: Oriented X 3. Grossly normal, nonfocal Course Course Course Narrative: 26-year-old female presents to the ER with a diffuse urticarial type rash after starting amoxicillin about 1 week ago. No evidence of angioedema or anaphylaxis. Her rash is most likely an adverse side effect of the amoxicillin. Will give a course of steroids as well as encourage oral antihistamines for itchiness. This time she is stable for discharge home. She will at penicillin to her allergy list moving forward. Patient has been counseled using the staff research associate. She is stable for DC. Discharge Plan Discharge Clinical Impression: Allergic reaction Patient Disposition: Home, Self-Care Instructions: Antibiotic Medication Allergy (ED) Additional Instructions: Continue benadryl 50 mg every 6-8 hours as needed for itching and rash. Take the prescribed steroid to help with the rash. The rash is most likely an allergic reaction to Amoxicillin, in the future PENICILLIN should be on your allergy list. If you develop new or worsening symptoms call 911 or come back to the ER for further evaluation. Prescriptions: New prednisone 20 mg tablet 40 mg PO DAILY Qty: 10 0RF No Action oxycodone 5 mg Tablet 5 mg PO Q6H PRN (Reason: Pain, Severe (Pain Scale 7-10)) Qty: 15 0RF Rx Instructions: Partial Fill upon patient request. amoxicillin-pot clavulanate 875-125 mg tablet 1 tab PO BID Qty: 14 0RF Interventions: ED Discharge Assessment Last Done: 03/27/22 15:01 Discharge Date/Time: 03/27/22 15:01 Print Language: Dominican
== END 2022-03-27 15:01 | disposition home or self-care (01) ==
PROVIDERS: Emergency Provider Emergency Medicine
DX: R21 Rash and other nonspecific skin eruption (principal); T36.0X5A Adverse effect of penicillins, initial encounter; Y92.009 Unspecified place in unspecified non-institutional (private) residence as the place of occurrence of the external cause
CPT/HCPCS: 99283

== ENCOUNTER 2022-10-09 18:29 | Emergency (ER) | payer OTHER, SELFPAY ==
--- NOTE | 2022-10-09 18:31 | ED_ITS ---
HPI - URI/Sore Throat General Chief Complaint: General Medical <Silvia Mosqueda CNP - Last Filed: 10/09/22 18:37> Stated Complaint: fatigue, not feeling well <Silvia Mosqueda CNP - Last Filed: 10/09/22 18:37> Time Seen by Provider: 10/09/22 18:52 <Silvia Mosqueda CNP - Last Filed: 10/09/22 18:37> Source: patient <ANDRE Johns - Last Filed: 10/09/22 20:35> Mode of arrival: ambulatory <ANDRE Johns - Last Filed: 10/09/22 20:35> Limitations: no limitations <ANDRE Johns - Last Filed: 10/09/22 20:35> History of Present Illness HPI Narrative: This is a 27-year-old female presenting to the emergency department with fatigue, malaise, nausea, poor sleeping habits for the past few weeks worsening. Patient tells me she is here today to get a test done. Patient tells me she took 1 at home when it was negative, she tells me she is not currently trying to get at this time however she is sexually active with her 1 partner without protection and is not on control. Patient reports her last menstrual period was September 16 2022. She denies upper respiratory symptoms, chest pain, shortness of breath, fevers, chills, vomiting, abdominal pain, back pain, changes in urination, changes in bowel habits. <ANDRE Johns - Last Filed: 10/09/22 20:35> Related Data Home Medications: Previous Rx's Medication Instructions Recorded amoxicillin 875 mg-potassium 1 tab PO BID #14 tabs 03/17/22 clavulanate 125 mg tablet oxycodone 5 mg tablet 5 mg PO Q6H PRN Pain, Severe (Pain 03/17/22 Scale 7-10) #15 tabs prednisone 20 mg tablet 40 mg PO DAILY #10 tabs 03/27/22 prenat.vits,inocente,[id number] 1 tab PO DAILY #30 tabs 10/09/22 <Silvia Mosqueda CNP - Last Filed: 10/09/22 18:37> Allergies/Adverse Reactions: Allergies Allergy/AdvReac Type Severity Reaction Status Date / Time No Known Allergies Allergy Verified 10/09/22 18:37 <Silvia Mosqueda CNP - Last Filed: 10/09/22 18:37> Review of Systems Review of Systems: Constitutional : No Weight loss, No Fever, No Chills, + Fatigue, + Malaise ENT/Mouth : No sore throat, No Rhinorrhea Eyes: No Eye Pain, No Swelling, No Redness Cardiovascular : No Chest Pain, No SOB, No Dyspnea on Exertion, No Orthopnea, No Edema, No Palpitations Respiratory : No Cough, No Sputum, No Wheezing Gastrointestinal : + Nausea, No Vomiting, No Diarrhea, No Constipation, No abdominal Pain, No Hematochezia, No Melena Genitourinary : No Dysuria, No Urinary Frequency, No Hematuria, Musculoskeletal : No joint pain, No Myalgias, No Joint Swelling Skin : No Skin Lesions, No rash Neuro : No Weakness, No Numbness, No Dizziness, No Headache Psych : No Anxiety/Panic, No Depression All other systems reviewed and are negative <ANDRE Johns - Last Filed: 10/09/22 20:35> Yes all other systems are reviewed and are negative <ANDRE Johns - Last Filed: 10/09/22 20:35> PMF Past Medical History Attestation statement: The following information was validated with the patient. <ANDRE Johns - Last Filed: 10/09/22 20:35> Source: old records reviewed and nursing notes reviewed <ANDRE Johns - Last Filed: 10/09/22 20:35> Medical History: Medical History No pertinent past medical history Sepsis <Silvia Mosqueda CNP - Last Filed: 10/09/22 18:37> Surgical History: Surgical History No pertinent past surgical history <Silvia Mosqueda CNP - Last Filed: 10/09/22 18:37> Family History Family History: Family History Other No family history of coronary artery disease <Silvia Mosqueda CNP - Last Filed: 10/09/22 18:37> Social History Social History: Social History Household Members: Family Housing: Apartment Do you presently have visiting nurse or other home services: No Alcohol intake: current Patient Tobacco Use Status: Never used Tobacco Smoked in Last 30 Days: No Use of substances other than those prescribed or required for medical reasons: No Advance Directives: No Advance Directives Information Provided: No service: No Current occupational status: employed <Silvia Mosqueda CNP - Last Filed: 10/09/22 18:37> Physical Exam Vital Signs: Vital Signs: Last Vital Signs Temp 98.3 F 10/09/22 18:32 Pulse 89 10/09/22 18:32 Resp 18 10/09/22 18:32 BP 116/83 10/09/22 18:32 Pulse Ox 100 10/09/22 18:32 BMI result Body Mass Index 21.9 <Silvia Mosqueda CNP - Last Filed: 10/09/22 18:37> Vital Signs: Last Vital Signs Temp 98.3 F 10/09/22 18:32 Pulse 89 10/09/22 18:32 Resp 18 10/09/22 18:32 BP 116/83 10/09/22 18:32 Pulse Ox 100 10/09/22 18:32 BMI result Body Mass Index 21.9 vss <ANDRE Johns - Last Filed: 10/09/22 20:35> Appearance: Alert.? Oriented X3.? No acute distress.? Head: Normocephalic, atraumatic, no step-offs or deformities Eyes: Pupils equal, round and reactive to light.? CVS: Normal heart rate and rhythm.? Pulses normal.? Respiratory: No respiratory distress.? Breath sounds normal.? Abdomen: Soft and nontender.? Skin: Skin warm and dry.? Normal skin color.? Normal skin turgor.? Extremities: No lower extremity edema.? No calf ttp. 5/5 strength to bilateral upper and lower extremities Back: No CVA tenderness bilaterally Neuro: Oriented X 3.? No motor deficit.? No sensory deficit. CN 2-12 intact <ANDRE Johns - Last Filed: 10/09/22 20:35> Course Course Course Narrative: This is an RME: Additional HPI, ROS, PE not included below will be deferred to primary provider. Patient is a 27-year-old female who presents emergency department for evaluation of feeling unwell for 1 week. Tired, nausea, headache, loss of appetite, thought she may be and test was negative. Denies vomiting, abdominal pain, sick contacts, dysuria, urinary frequency, LMP 09/12/2022. Plan: viral testing, urinalysis, urine , zofran PO <Silvia Mosqueda CNP - Last Filed: 10/09/22 18:37> Reevaluation(s) Reevaluation #1: Patient's urine positive. Discussed this with patient. Educated her on diagnosis, will send vitamins to her pharmacy. Will have her follow-up with OBGYN. Patient denies abdominal pain, back pain, vaginal discharge, vaginal bleeding, pelvic pain. Too early to obtain ultrasound, she can have this done on an outpatient basis no need for an emergent ultrasound at this time. History and physical examination not consistent with ectopic . Educated patient on diagnosis and treatment plan, answered all question, patient verbalizes understanding. At this time patient will be discharged home, advised to return with new or worsening symptoms. Educated on worrisome signs and symptoms and when to return. At this time I feel comfortable discharge home. <ANDRE Johns - Last Filed: 10/09/22 20:35> Time: 20:11 <ANDRE Johns - Last Filed: 10/09/22 20:35> Medications Administered Discontinued Medications Generic Name Dose Route Start Last Admin Trade Name Freq PRN Reason Stop Dose Admin Ondansetron HCl 4 mg 10/09/22 18:34 10/09/22 18:40 Ondansetron Odt 4 Mg Tab.Rapdis TRANSLINGU 10/09/22 18:35 4 mg ONCE ONE Administration <Silvia Mosqueda CNP - Last Filed: 10/09/22 18:37> Medications Administered Discontinued Medications Generic Name Dose Route Start Last Admin Trade Name Freq PRN Reason Stop Dose Admin Ondansetron HCl 4 mg 10/09/22 18:34 10/09/22 18:40 Ondansetron Odt 4 Mg Tab.Rashid ROY 10/09/22 18:35 4 mg ONCE ONE Administration <ANDRE Johns - Last Filed: 10/09/22 20:35> Medical Decision Making Medical Decision Making [facility] Narrative: 1898 27-year-old female presents with fatigue, malaise, nausea times a few weeks concerned that she may be . Although, added negative at home COVID test. LMP 09/16/2022 Physical exam benign. Concerns for possible viral syndrome or . Unlikely mono. Plan at this time is hCG, urine test. <ANDRE Johns - Last Filed: 10/09/22 20:35> Differential Diagnosis Differential Diagnoses: The differential diagnosis associated with the presentation includes <ANDRE Ritchie - Last Filed: 10/09/22 20:35> Concerns for possible viral syndrome or . Unlikely mono. <ANDRE Johns - Last Filed: 10/09/22 20:35> Admission/Observation Consideration of admission/observation: Escalation of care including admission/observation considered <ANDRE Johns - Last Filed: 10/09/22 20:35> Not indicated <ANDRE Johns - Last Filed: 10/09/22 20:35> Lab Data [facility] Lab Attestation statement: I reviewed the patient's lab results. <ANDRE Johns - Last Filed: 10/09/22 20:35> Labs: Lab Results 10/09/22 10/09/22 10/09/22 Range/Units 19:36 19:36 19:36 Beta HCG, Quant 217 mIU/mL Urine Color Yellow Urine Appearance Cloudy Urine pH 6.5 (5.0-9.0) Ur Specific [place] >= 1.030 H (1.005-1.025) Urine Protein Trace (Neg-Trace) mg/dL Urine Glucose (UA) Negative (Negative) mg/dL Urine Ketones Trace (Negative) mg/dL Urine Blood Negative (Negative) Urine Nitrite Negative (Negative) Ur Leukocyte Esterase Negative (Negative) Urine Test POSITIVE H (NEGATIVE) <Silvia Mosqueda CNP - Last Filed: 10/09/22 18:37> Lab Results 10/09/22 10/09/22 10/09/22 Range/Units 19:36 19:36 19:36 Beta HCG, Quant 217 mIU/mL Urine Color Yellow Urine Appearance Cloudy Urine pH 6.5 (5.0-9.0) Ur Specific [place] >= 1.030 H (1.005-1.025) Urine Protein Trace (Neg-Trace) mg/dL Urine Glucose (UA) Negative (Negative) mg/dL Urine Ketones Trace (Negative) mg/dL Urine Blood Negative (Negative) Urine Nitrite Negative (Negative) Ur Leukocyte Esterase Negative (Negative) Urine Test POSITIVE H (NEGATIVE) <ANDRE Johns - Last Filed: 10/09/22 20:35> Core Measures AMI core measures followed: Yes <ANDRE Johns - Last Filed: 10/09/22 20:35> Measure exclusions: not indicated <ANDRE Johns - Last Filed: 10/09/22 20:35> Discharge Plan Discharge Clinical Impression: Fatigue, Nausea, <Silvia Mosqueda CNP - Last Filed: 10/09/22 18:37> Patient Disposition: Home, Self-Care <Silvia Mosqueda CNP - Last Filed: 10/09/22 18:37> Additional Instructions: Take your medications as prescribed. If you were prescribed antibiotics today, it is important that you take your medication to their entirety, do not skip any doses, do not finish them early. Follow-up with your primary care provider this week. Please see an OBGYN as soon as possible. Take vitamins. Return to the emergency department with new or worsening symptoms. Such as fevers, chills, chest pain, shortness of breath, nausea, vomiting, dizziness, headache, vision changes, lethargy In case of emergency call 911 <Silvia Mosqueda CNP - Last Filed: 10/09/22 18:37> Prescriptions: New prenat.vits,inocente,[id number] Tablet 1 tab PO DAILY Qty: 30 0RF No Action oxycodone 5 mg Tablet 5 mg PO Q6H PRN (Reason: Pain, Severe (Pain Scale 7-10)) Qty: 15 0RF Rx Instructions: Partial Fill upon patient request. amoxicillin-pot clavulanate 875-125 mg tablet 1 tab PO BID Qty: 14 0RF prednisone 20 mg tablet 40 mg PO DAILY Qty: 10 0RF <Silvia Mosqueda CNP - Last Filed: 10/09/22 18:37> Referrals: PhysicianLyssa [Primary Care Provider] - 2 days Erick Munoz MD [Physician] - 1 day <Silvia Mosqueda CNP - Last Filed: 10/09/22 18:37> Interventions: ED Discharge Assessment Last Done: 10/09/22 20:30 <Silvia Mosqueda CNP - Last Filed: 10/09/22 18:37> Discharge Date/Time: 10/09/22 20:31 <Silvia Mosqueda CNP - Last Filed: 10/09/22 18:37>
[2022-10-09 18:32] VITALS: BP 116/83; PULSE 89; RESP 18; TEMP 36.8; O2SAT 100; BMI 21.9
[2022-10-09] MEDS: Ondansetron ODT 4 MG TAB.RAPDIS TRANSLINGU (18:40)
--- NOTE | 2022-10-09 19:18 | PC.NURSE ---
assumed care of patient aox4 no apparent distress
--- NOTE | 2022-10-09 19:43 | PC.NURSE ---
urine cup was not provided to pt for collection urine cup provided, clean catch collection explained and patient directed to restroom to collect urine specimen urine collection obtained, and HCG Quant blood specimen collectd by this nurse specimens sent to lab via tube system
[2022-10-09 19:57] LABS: Appearance Urine Cloudy; Color Urine Yellow; Glucose Urine UA Negative (Negative); Leukocyte Esterase Urine Negative (Negative); Nitrite Urine Negative (Negative); PH 6.5 (5.0-9.0); Specific Gravity - Urine >= 1.030 (1.005-1.025); Urine Blood Negative (Negative); Urine Ketones Trace mg/dL (Negative); Urine Protein Trace mg/dL (Neg-Trace)
[2022-10-09 20:05] LABS: UPreg QC Valid YES; Urine Pregnancy POSITIVE (NEGATIVE)
--- NOTE | 2022-10-09 20:23 | PC.NURSE ---
discharge instructions given/explained, pt aox4, ambulates safely/independently; no apparent distress
[2022-10-09 20:24] LABS: HCG Quantitative 217 mIU/mL
[2022-10-09 21:00] LABS: COVID-19 Test Negative (Negative); IDNOW Serial# 16C4AD1C
[2022-10-09 21:00] LABS: IDNOW Serial# BCCEAD1C; Influenza A Negative (Negative); Influenza B2 Negative (Negative)
== END 2022-10-09 20:31 | disposition home or self-care (01) ==
PROVIDERS: Nurse Practitioner Family; Physician Assistant; Emergency Provider Internal Medicine
DX: R53.83 Other fatigue (principal); R11.0 Nausea; Z20.822 Contact with and (suspected) exposure to COVID-19; Z20.828 Contact with and (suspected) exposure to other viral communicable diseases; Z79.899 Other long term (current) drug therapy
CPT/HCPCS: 36415; 81003; 81025; 84702; 87502; 87635; 99284

== ENCOUNTER 2022-10-22 13:30 | Emergency (ER) | payer OTHER, SELFPAY ==
--- NOTE | ~2022-10-22 | US_ITS ---
EXAMINATION: US FIRST TRIMESTER CLINICAL INFORMATION: Vaginal bleeding LMP: Unknown Beta-hCG: Unknown COMPARISON: None available. TECHNIQUE: Transabdominal imaging was performed. FINDINGS: UTERUS AND INTRAUTERINE GESTATIONAL SAC: Single intrauterine gestational sac found measures 1.9 x 1.3 x 1 cm suggesting of 5 weeks 5 days. CROWN-RUMP LENGTH (CRL) no pole found. YOLK SAC: Yolk sac detected. SUBCHORIONIC HEMORRHAGE: None OVARIES: Right: Normal cystic structure right ovary 1 x 0.8 x 0.8 cm. Left: Normal FREE FLUID: None OTHER FINDINGS: None US/US OB pelvic and transvaginal IMPRESSION: Single intrauterine gestational sac 1.9 cm suggesting of 5 weeks and 5 days however NO POLE OR HEART RATE DETECTED. Could be an early in the versus pseudogestation. Correlation with patient's hormonal status and Attention to follow-up recommended.
[2022-10-22 13:50] VITALS: BP 126/76; PULSE 83; RESP 16; TEMP 36.6; O2SAT 98; BMI 22.6
[2022-10-22 14:06] LABS: MANUAL DIFF FLAG NO
[2022-10-22 14:10] LABS: Basophils Percent Auto 0.3 % (0-2); Eosinophils Absolute Auto 0.1 X10*3/uL (0.0-0.4); Eosinophils Percent Auto 1.5 % (0-4); Hematocrit 34.8 % (37.0-47.0); Hemoglobin 11.4 g/dl (12.0-16.0); Imm Gran Abs Auto 0.02 X10*3/uL (0.00-0.03); Imm Gran Pct Auto 0.3 % (0.0-0.4); Lymphocytes Absolute Auto 2.1 X10*3/uL (1.2-4.9); Lymphocytes Percent Auto 35.3 % (20-40); Mean Corpuscular HGB Conc 32.8 g/dl (31.0-35.0); Mean Corpuscular Hemoglobin 27.9 pg (27.0-33.0); Mean Corpuscular Volume 85.3 fL (80.0-98.0); Mean Platelet Volume 9.9 fL (9.4-12.3); Monocytes Absolute Auto 0.5 X10*3/uL (0.1-1.2); Monocytes Percent Auto 8.8 % (2-11); Neutrophils Absolute Auto 3.1 x10*3/uL (2.0-8.3); Neutrophils Percent Auto 53.8 % (45-73); Platelet Count 230 X10*3/uL (160-400); Red Blood Count 4.08 X10*6/uL (4.20-5.50); Red Cell Distribution Width 12.7 % (11.0-16.0); White Blood Count 5.8 X10*3/uL (4.8-10.8)
[2022-10-22 14:56] LABS: Alanine Aminotransferase 15 U/L (0-31); Albumin Level 4.1 g/dL (3.5-5.0); Alkaline Phosphatase 57 U/L (39-117); Anion Gap 11 (12-20); Aspartate Amino Transferase 18 U/L (5-31); Bilirubin Total 0.5 mg/dL (0.0-1.0); Blood Urea Nitrogen 11 mg/dL (9-16); Calcium 9.3 mg/dL (8.4-10.2); Carbon Dioxide 24 mmol/L (22-29); Chloride 104 mmol/L (96-108); Creatinine Clr Calc Pharmacy 101.3; Estimated Glomerular Filt Rate > 60; Glucose Random 84 mg/dL (60-115); Sodium 135 mmol/L (135-145)
--- NOTE | 2022-10-22 15:16 | ED.PREGNANCY ---
HPI - General Chief complaint: Vaginal Bleeding Stated complaint: abd pain Time Seen by Provider: 10/22/22 14:37 Source: patient Mode of arrival: ambulatory Limitations: no limitations History of Present Illness HPI Narrative: 27 yo female currently 6 weeks with LMP 09/16/22 presenting with spotting for the last 3 days. She has no pain. She reports a small amount of bleeding on her panty liner and when she wipes intermittently. She has an appointment with OB here on Monday. No vaginal discharge and no urinary symptoms. No fever, chills, diarrhea, or abdominal pain. MD Complaint: vaginal bleeding Onset (ago): day(s) (3) Pain Consistency: intermittent Severity: mild Relieving factors: none Exacerbating factors: none Associated symptoms: nausea Vaginal discharge: none Vaginal bleeding: light Date of Last Menstrual Period: 09/16/22 Patient : Yes Related Data Previous Rx's Medication Instructions Recorded amoxicillin 875 mg-potassium 1 tab PO BID #14 tabs 03/17/22 clavulanate 125 mg tablet oxycodone 5 mg tablet 5 mg PO Q6H PRN Pain, Severe (Pain 03/17/22 Scale 7-10) #15 tabs prednisone 20 mg tablet 40 mg PO DAILY #10 tabs 03/27/22 prenat.vits,inocente,hse-xddw-ljarx 1 tab PO DAILY #30 tabs 10/09/22 Allergies Allergy/AdvReac Type Severity Reaction Status Date / Time No Known Allergies Allergy Verified 10/09/22 18:37 Review of Systems Review of Systems: Yes all other systems are reviewed and are negative [facility]LY [facility] Past Medical History Medical History No pertinent past medical history Sepsis Surgical History No pertinent past surgical history Date of Last Menstrual Period: 09/16/22 Family History Family History Other No family history of coronary artery disease Social History Social History Household Members: Family Housing: Apartment Do you presently have visiting nurse or other home services: No Alcohol intake: current Patient Tobacco Use Status: Never used Tobacco Advance Directives: No Advance Directives Information Provided: No Patient : Yes service: No Current occupational status: employed Physical Exam Vital Signs: Vital Signs: Last Vital Signs Temp 98 F 10/22/22 13:50 Pulse 83 10/22/22 13:50 Resp 16 10/22/22 13:50 BP 126/76 10/22/22 13:50 Pulse Ox 98 10/22/22 13:50 O2 Del Method 10/22/22 13:50 BMI result Body Mass Index 22.6 Appearance: Alert. Oriented X3. No acute distress. Eyes: Pupils equal, round and reactive to light. ENT: Pharynx normal. Neck: Normal inspection. Neck supple. CVS: Normal heart rate and rhythm. Pulses normal. Respiratory: No respiratory distress. Breath sounds normal. Abdomen: Soft and nontender. +BS x4 Pelvic: normal external genitalia, purulent bloody discharge in the vaginal vault, cervical os is closed, no CMT, no adenxal tenderness Skin: Skin warm and dry. Normal skin color. Normal skin turgor. No rashes. Extremities: No lower extremity edema. Neuro: Oriented X 3. nonfocal Course Course Course Narrative: 27-year-old currently 6 weeks presenting with painless spotting x3 days. Concern for possible threatened vs normal 1st trimester bleeding. HCG quant, pelvis U/S ordered. Reevaluation(s) Reevaluation #1: Pelvic/OB U/S with gestational sac but no pole or HR, ?too early, ?miscarriage. HCG 27,000 will need to follow up with OB as scheduled on monday Reevaluation #2: pelvic exam with purulent discharge. she denies symptoms. CT/NG, BV panel, trich prep ordered. no CMT or adenxal tenderness - d/w Dr. Munoz. PID less likely in , does not fit criteria. will empirically treat for CT/NG while awaiting results. Consultations Consultation #1: OB Ashley Munoz Medical Decision Making Differential Diagnosis Differential Diagnoses: The differential diagnosis associated with the presentation includes threatened , subchorionic hemorrhage, 1st trimester bleeding, bacterial vaginosis, cervicitis, STI, PID Consult Healthcare Provider Management of the patient was discussed with: Talent Development Director Dr. Munoz check Gc/CT results, precautions to call back with pain, fever and treat accordingly And office follow up Lab Data 10/22/22 14:02 10/22/22 14:02 Labs: Lab Results 10/22/22 10/22/22 10/22/22 Range/Units 14:02 14:02 14:02 WBC 5.8 (4.8-10.8) X10*3/uL RBC 4.08 L (4.20-5.50) X10*6/uL Hgb 11.4 L (12.0-16.0) g/dl Hct 34.8 L (37.0-47.0) % MCV 85.3 (80.0-98.0) fL MCH 27.9 (27.0-33.0) pg MCHC 32.8 (31.0-35.0) g/dl RDW 12.7 (11.0-16.0) % Plt Count 230 (160-400) X10*3/uL MPV 9.9 (9.4-12.3) fL Immature Gran % (Auto) 0.3 (0.0-0.4) % Neut % (Auto) 53.8 (45-73) % Lymph % (Auto) 35.3 (20-40) % [place] % (Auto) 8.8 (2-11) % Eos % (Auto) 1.5 (0-4) % Baso % (Auto) 0.3 (0-2) % Lymph # (Auto) 2.1 (1.2-4.9) X10*3/uL [place] # (Auto) 0.5 (0.1-1.2) X10*3/uL Eos # (Auto) 0.1 (0.0-0.4) X10*3/uL Baso # (Auto) 0.0 (0.0-0.2) X10*3/uL Abs Immat Gran (auto) 0.02 (0.00-0.03) X10*3/uL Absolute Neuts (auto) 3.1 (2.0-8.3) x10*3/uL Absolute Nucleated RBC 0.000 (0.0-0.012) X10*3/uL Nucleated RBC % (auto) 0.0 (0.0-0.2) /100WBC Sodium 135 (135-145) mmol/L Potassium 4.0 (3.3-5.1) mmol/L Chloride 104 (96-108) mmol/L Carbon Dioxide 24 (22-29) mmol/L Anion Gap 11 L (12-20) BUN 11 (9-16) mg/dL Creatinine 0.64 (0.5-1.4) mg/dL Estim Creat Clear Calc 101.3 Estimated GFR > 60 Random Glucose 84 (60-115) mg/dL Calcium 9.3 D (8.4-10.2) mg/dL Total Bilirubin 0.5 (0.0-1.0) mg/dL AST 18 (5-31) U/L ALT 15 (0-31) U/L Alkaline Phosphatase 57 (39-117) U/L Total Protein 8.0 (6.5-8.0) g/dL Albumin 4.1 (3.5-5.0) g/dL Beta HCG, Quant 57882 mIU/mL Blood Type 10/22/22 Range/Units 16:04 WBC (4.8-10.8) X10*3/uL RBC (4.20-5.50) X10*6/uL Hgb (12.0-16.0) g/dl Hct (37.0-47.0) % MCV (80.0-98.0) fL MCH (27.0-33.0) pg MCHC (31.0-35.0) g/dl RDW (11.0-16.0) % Plt Count (160-400) X10*3/uL MPV (9.4-12.3) fL Immature Gran % (Auto) (0.0-0.4) % Neut % (Auto) (45-73) % Lymph % (Auto) (20-40) % [place] % (Auto) (2-11) % Eos % (Auto) (0-4) % Baso % (Auto) (0-2) % Lymph # (Auto) (1.2-4.9) X10*3/uL [place] # (Auto) (0.1-1.2) X10*3/uL Eos # (Auto) (0.0-0.4) X10*3/uL Baso # (Auto) (0.0-0.2) X10*3/uL Abs Immat Gran (auto) (0.00-0.03) X10*3/uL Absolute Neuts (auto) (2.0-8.3) x10*3/uL Absolute Nucleated RBC (0.0-0.012) X10*3/uL Nucleated RBC % (auto) (0.0-0.2) /100WBC Sodium (135-145) mmol/L Potassium (3.3-5.1) mmol/L Chloride (96-108) mmol/L Carbon Dioxide (22-29) mmol/L Anion Gap (12-20) BUN (9-16) mg/dL Creatinine (0.5-1.4) mg/dL Estim Creat Clear Calc Estimated GFR Random Glucose (60-115) mg/dL Calcium (8.4-10.2) mg/dL Total Bilirubin (0.0-1.0) mg/dL AST (5-31) U/L ALT (0-31) U/L Alkaline Phosphatase (39-117) U/L Total Protein (6.5-8.0) g/dL Albumin (3.5-5.0) g/dL Beta HCG, Quant mIU/mL Blood Type O Positive Independent Interpretation I performed an independent interpretation of an: Ultrasound Interpretation: gestational sac seen, no HR or pole Radiology Impression Discussion of test interpretation with radiology: I have reviewed the radiologist's reading. Radiologist Impression: US/US OB pelvic and transvaginal IMPRESSION: Single intrauterine gestational sac 1.9 cm suggesting of 5 weeks and 5 days however NO POLE OR HEART RATE DETECTED. Could be an early in the versus pseudogestation. Correlation with patient's hormonal status and Attention to follow-up recommended. External Record Review External record reviewed: Outpatient record, Prior outpatient labs and Prior outpatient radiology Prescription Management I considered prescription management with: Antibiotic Critical Care Time Critical Care Time Critical Care Time: No Discharge Plan Discharge Clinical Impression: Vaginal bleeding Patient Disposition: Home, Self-Care Instructions: Threatened Miscarriage (ED), Non-Threatening First Trimester Vaginal Bleed (ED) Additional Instructions: If you develop pain, worsening bleeding, fever or any other concerning sign/symptom call your doctor or come back to the ER right away for further evaluation. Follow up with [facility] on Monday as scheduled. Si desarrolla dolor, sangrado que empeora, fiebre o cualquier otro signo/s?ntoma preocupante, llame a lópez m?dico o regrese a la shay de emergencias de inmediato para shimon evaluaci?n adicional. Seguimiento con obstetra/ginec?logo el es seg?n lo programado. Prescriptions: No Action oxycodone 5 mg Tablet 5 mg PO Q6H PRN (Reason: Pain, Severe (Pain Scale 7-10)) Qty: 15 0RF Rx Instructions: Partial Fill upon patient request. amoxicillin-pot clavulanate 875-125 mg tablet 1 tab PO BID Qty: 14 0RF prednisone 20 mg tablet 40 mg PO DAILY Qty: 10 0RF prenat.vits,inocente,acq-uauy-rydki Tablet 1 tab PO DAILY Qty: 30 0RF Referrals: Erick Munoz MD [Physician] - 10/24/22 (US/US OB pelvic and transvaginal IMPRESSION: Single intrauterine gestational sac 1.9 cm suggesting of 5 weeks and 5 days however NO POLE OR HEART RATE DETECTED. Could be an early in the versus pseudogestation. Correlation with patient's hormonal status and Attention to follow-up recommended.) Print Language: Samoan
[2022-10-22] MEDS: cefTRIAXone sodium 250 MG, Lidocaine HCl 1 % MPF 0.9 ML IM (17:16)
[2022-10-22] MEDS: Azithromycin 500 MG TABLET 1000 MG PO (17:17)
[2022-10-22 18:42] LABS: CT PCR NOT DETECTED (Not Detect.); NG PCR NOT DETECTED (Not Detect.)
--- NOTE | 2022-10-22 19:20 | PM.GYNCN ---
HUMID SYSTEM OPERATOR - CN: HPI Data of Consult Consult date: 10/22/22 Primary Care Provider: Unknown Physician Consult Narrative Narrative: Late entry note I was consulted on Jayde Goodman is a 27 year old , LMP 09/16/22 at 6 weeks presenting with spotting for the last 3 days with no associated pelvic pain, No vaginal discharge and no urinary symptoms. No fever, chills, diarrhea, or abdominal pain. Blood type O positive. HCG 97769, GC and chlamydia taken were negative, BV panel with Trichomonas collected pending cc:: CC: [facility] Past Medical History Medical History No pertinent past medical history Sepsis Family History Family History Other No family history of coronary artery disease Surgical History Surgical History No pertinent past surgical history Social History Social History Household Members: Family Housing: Apartment Do you presently have visiting nurse or other home services: No Alcohol intake: current Patient Tobacco Use Status: Never used Tobacco Advance Directives: No Advance Directives Information Provided: No Patient : Yes service: No Current occupational status: employed Meds Allergies Allergy/AdvReac Type Severity Reaction Status Date / Time No Known Allergies Allergy Verified 10/09/22 18:37 HUMID SYSTEM OPERATOR Physical Exam Vitals Vital signs: Temp Pulse Resp BP Pulse Ox O2 Del Method 98 F 83 16 126/76 98 10/22/22 13:50 10/22/22 13:50 10/22/22 13:50 10/22/22 13:50 10/22/22 13:50 10/22/22 13:50 BMI result Body Mass Index 22.6 Additional Comments: Pelvic exam Reported by ANDRE Cisneros as the following: Pelvic: normal external genitalia, purulent bloody discharge in the vaginal vault, cervical os is closed, no CMT, no adenxal tendernes HUMID SYSTEM OPERATOR - Results Labs 10/22/22 14:02 10/22/22 14:02 Labs: Short CBC 10/22/22 Range/Units 14:02 WBC 5.8 (4.8-10.8) X10*3/uL Hgb 11.4 L (12.0-16.0) g/dl Hct 34.8 L (37.0-47.0) % Plt Count 230 (160-400) X10*3/uL BMP 10/22/22 14:02 Sodium 135 Potassium 4.0 Chloride 104 Carbon Dioxide 24 BUN 11 Creatinine 0.64 Calcium 9.3 D Liver Function 10/22/22 Range/Units 14:02 Total Bilirubin 0.5 (0.0-1.0) mg/dL AST 18 (5-31) U/L ALT 15 (0-31) U/L Alkaline Phosphatase 57 (39-117) U/L Albumin 4.1 (3.5-5.0) g/dL Imaging US - abdomen: Radiologist's impression: ITS Impressions Pelvic/Transvag US 10/22/22 14:59 IMPRESSION: Single intrauterine gestational sac 1.9 cm suggesting of 5 weeks and 5 days however NO POLE OR HEART RATE DETECTED. Could be an early in the versus pseudogestation. Correlation with patient's hormonal status and Attention to follow-up recommended. Assessment and Plan (1) Spotting in first trimester: Status: Acute Plan Discussed with ANDRE Cisneros the following differential diagnosis including but not limited to: early , SAB or ectopic . Since GC and chlamydia are negative, no cervical motion tenderness, uterine and adnexal tenderness or abdominal tenderness, patient does not fit criteria for PID which is unlikely in . Recommend to check BV panel and Trichomonas and treat accordingly. Instructions to be given to the patient to come back to emergency room in case of bleeding and/ or pelvic pain, temperature above 100.4, nausea or vomiting and follow-up in the office in 48 hours repeat hCG quantitative and ultrasound. I spent a total of 20 minutes reviewing the chart, communicating with the ER provider and documenting in the medical Time Spent With Patient Time: Total time managing care of this patient today ____ minutes.
[2022-10-23 11:30] LABS: BV Int Neg Control Negative (Negative); BV Int Pos Control Positive (Positive)
== END 2022-10-22 17:25 | disposition home or self-care (01) ==
PROVIDERS: Physician Assistant; Emergency Provider Student in an Organized Health Care Education/Training Program
DX: O26.851 Spotting complicating pregnancy, first trimester (principal); Z3A.01 Less than 8 weeks gestation of pregnancy
CPT/HCPCS: 0353U; 36415; 76801; 76817; 80053; 84702; 85025; 86900; 86901; 87480; 87510; 87660; 96372; 99282; 99284; J0696

== ENCOUNTER → 2022-10-27 14:36 | Outpatient (BNVA) | payer OTHER, SELFPAY | PROVIDERS: Visit Provider Obstetrics & Gynecology | DX: O26.851 Spotting complicating pregnancy, first trimester (principal); Z3A.01 Less than 8 weeks gestation of pregnancy | CPT/HCPCS: 99212 ==

== ENCOUNTER 2022-10-30 01:53 | Emergency (ER) | payer OTHER, SELFPAY ==
[2022-10-30 02:17] VITALS: BP 109/63; PULSE 74; RESP 16; TEMP 36.8; O2SAT 99
[2022-10-30 02:39] LABS: MANUAL DIFF FLAG NO
[2022-10-30 02:41] LABS: Basophils Percent Auto 0.3 % (0-2); Eosinophils Absolute Auto 0.1 X10*3/uL (0.0-0.4); Eosinophils Percent Auto 1.5 % (0-4); Hematocrit 35.3 % (37.0-47.0); Hemoglobin 11.6 g/dl (12.0-16.0); Imm Gran Abs Auto 0.02 X10*3/uL (0.00-0.03); Imm Gran Pct Auto 0.3 % (0.0-0.4); Lymphocytes Absolute Auto 2.6 X10*3/uL (1.2-4.9); Lymphocytes Percent Auto 33.3 % (20-40); Mean Corpuscular HGB Conc 32.9 g/dl (31.0-35.0); Mean Corpuscular Hemoglobin 28.1 pg (27.0-33.0); Mean Corpuscular Volume 85.5 fL (80.0-98.0); Mean Platelet Volume 10.2 fL (9.4-12.3); Monocytes Absolute Auto 0.8 X10*3/uL (0.1-1.2); Monocytes Percent Auto 10.1 % (2-11); Neutrophils Absolute Auto 4.2 x10*3/uL (2.0-8.3); Neutrophils Percent Auto 54.5 % (45-73); Platelet Count 223 X10*3/uL (160-400); Red Blood Count 4.13 X10*6/uL (4.20-5.50); Red Cell Distribution Width 12.6 % (11.0-16.0); White Blood Count 7.8 X10*3/uL (4.8-10.8)
[2022-10-30 02:42] LABS: Appearance Urine Cloudy; Color Urine Yellow; Glucose Urine UA Negative (Negative); Leukocyte Esterase Urine Trace (Negative); Nitrite Urine Negative (Negative); PH 5.5 (5.0-9.0); Specific Gravity - Urine 1.025 (1.005-1.025); UMIC TRIGGER UACC YES; Urine Blood Large (3+) (Negative); Urine Ketones Negative (Negative); Urine Protein 30 (1+) mg/dL (Neg-Trace)
[2022-10-30 02:43] LABS: Bacteria Urine 1+ (None Seen); Hyaline Casts Urine 0-2 /LPF (0-2); RBC Urine >20 /HPF (0-2); WBC Urine 0-5 /HPF (0-5)
--- NOTE | 2022-10-30 02:51 | PC.NURSE ---
Patient is [place] Speaking. Patient reports vaginal bleeding, onset 20-30 min prior to arrival to ED. Patient reports bleeding large amount of bright red blood, no blood clots. Patient reports she is 6 weeks . Patient denies abdominal pain/nausea. Patient is afebrile. VSS. Labs drawn, urine specimen collected. Patient is awaiting for the provider. Call redd within patient's reach.
[2022-10-30 03:06] LABS: Alanine Aminotransferase 14 U/L (0-31); Alkaline Phosphatase 47 U/L (39-117); Anion Gap 14 (12-20); Aspartate Amino Transferase 19 U/L (5-31); Bilirubin Total 0.7 mg/dL (0.0-1.0); Blood Urea Nitrogen 14 mg/dL (9-16); Calcium 8.8 mg/dL (8.4-10.2); Carbon Dioxide 22 mmol/L (22-29); Chloride 104 mmol/L (96-108); Estimated Glomerular Filt Rate > 60; Glucose Random 87 mg/dL (60-115); Potassium 3.8 mmol/L (3.3-5.1); Sodium 136 mmol/L (135-145); Total Protein 8.1 g/dL (6.5-8.0)
--- NOTE | 2022-10-30 04:49 | ED_ITS ---
HPI - General Adult General Chief complaint: Vaginal Bleeding Stated complaint: vaginal bleeding? Time Seen by Provider: 10/30/22 04:33 Source: patient Mode of arrival: ambulatory Limitations: no limitations History of Present Illness HPI narrative: 27-year-old female presents with vaginal bleeding. She is . She does have care. She has been having vaginal spotting for quite some time without any abdominal pain. She has a confirmed IUP by ultrasound. Her last quantitative hCG was today. It has increased appropriately. She denies any passage of large clots or tissue. She has had no fevers or chills. No urinary complaints. No lightheadedness, palpitations, shortness of breath. She is t aking a vitamin. Related Data Previous Rx's Medication Instructions Recorded prenat.vits,inocente,oso-rszb-oggjq 1 tab PO DAILY #30 tabs 10/09/22 Allergies Allergy/AdvReac Type Severity Reaction Status Date / Time amoxicillin Allergy Hives Verified 10/27/22 15:01 Review of Systems Review of Systems: CONSTITUTIONAL: Denies weight loss, fever and chills. HEENT: Denies changes in vision and hearing. RESPIRATORY: Denies SOB and cough. CV: Denies palpitations no CP. GI: Denies abdominal pain, nausea, vomiting and diarrhea. : Denies dysuria and urinary frequency. MSK: Denies myalgia and joint pain. SKIN: Denies rash and pruritus. NEUROLOGICAL: Denies headache and syncope. PSYCHIATRIC: Denies recent changes in mood. Denies anxiety and depression. All other ROS are negative unless in HPI PMFSH Past Medical History Medical History No pertinent past medical history Sepsis Surgical History No pertinent past surgical history Family History Family History Other No family history of coronary artery disease Social History Social History Household Members: Family Housing: Apartment Do you presently have visiting nurse or other home services: No Alcohol intake: never Patient Tobacco Use Status: Never used Tobacco Smoked in Last 30 Days: No Use of substances other than those prescribed or required for medical reasons: No Advance Directives: No service: No Current occupational status: employed Physical Exam ED Vital Signs: Vital Signs - 24 hr 10/30/22 02:17 Temperature 98.2 F Pulse Rate 74 Respiratory Rate 16 Blood Pressure 109/63 Pulse Oximetry 99 Oxygen Delivery Method Room Air BMI result Body Mass Index 20.0 GEN: Well developed, no acute distress, alert, oriented HEENT: Normocephalic, atraumatic, normal external ears, nose appears normal, no oropharyngeal edema or exudates Eyes: Normal to appearance Neck: Supple, no lymphadenopathy Respiratory: Talks in complete sentences, no respiratory distress, clear to auscultation bilaterally Cardiovascular: Regular rate and rhythm, no murmurs rubs or gallops Abdomen: Soft, nontender, nondistended, no guarding, no rebound Back: No CVA tenderness Extremities: No clubbing cyanosis or edema Neurologic: No focal neurologic deficits, cranial nerves 2-12 intact, strength is 5/5 bilaterally, gait normal Skin: No rash Course Course Course Narrative: 27-year-old female presents with vaginal spotting. The symptoms have been going on for several days. She has been followed by OBGYN. She had a confirmed IUP by ultrasound. Her quantitative HCGs have been increasing appropriately. She is on a vitamin. Her spotting has not gotten particularly worsened her symptoms are not associated with pain. There is certainly her symptoms make her anxious which is why she presents today. On exam, she has no abdominal tenderness, rebound or guarding. She is otherwise well appearing. I reassured her that this can be a normal part of her early . However, she is also aware that a spontaneous miscarriage could occur. She has an appointment in a week and a half with her OBGYN. I am recommending closer follow-up if possible. At this time, patient be discharged safely with close follow-up Medical Decision Making Medical Decision Making MDM Narrative: 27-year-old female presents with vaginal spotting. The symptoms have been going on for several days. She has been followed by OBGYN. She had a confirmed IUP by ultrasound. Her quantitative HCGs have been increasing appropriately. She is on a vitamin. Her spotting has not gotten particularly worsened her symptoms are not associated with pain. There is certainly her symptoms make her anxious which is why she presents today. On exam, she has no abdominal tenderness, rebound or guarding. She is otherwise well appearing. I reassured her that this can be a normal part of her early pre gnancy. However, she is also aware that a spontaneous miscarriage could occur. She has an appointment in a week and a half with her OBGYN. I am recommending closer follow-up if possible. At this time, patient be discharged safely with close follow-up Differential Diagnosis Differential Diagnoses: The differential diagnosis associated with the presentation includes ( bleeding during 1st trimester, threatened , miscarriage) threatened Lab Data MDM Lab Attestation statement: I reviewed the patient's lab results. 10/30/22 02:10/30/22 02:33 Labs: Lab Results 10/30/22 10/30/22 10/30/22 Range/Units 02:33 02: 02:34 WBC 7.8 (4.8-10.8) X10*3/uL RBC 4.13 L (4.20-5.50) X10*6/uL Hgb 11.6 L (12.0-16.0) g/dl Hct 35.3 L (37.0-47.0) % MCV 85.5 (80.0-98.0) fL MCH 28.1 (27.0-33.0) pg MCHC 32.9 (31.0-35.0) g/dl RDW 12.6 (11.0-16.0) % Plt Count 223 (160-400) X10*3/uL MPV 10.2 (9.4-12.3) fL Immature Gran % (Auto) 0.3 (0.0-0.4) % Neut % (Auto) 54.5 (45-73) % Lymph % (Auto) 33.3 (20-40) % [place] % (Auto) 10.1 (2-11) % Eos % (Auto) 1.5 (0-4) % Baso % (Auto) 0.3 (0-2) % Lymph # (Auto) 2.6 (1.2-4.9) X10*3/uL [place] # (Auto) 0.8 (0.1-1.2) X10*3/uL Eos # (Auto) 0.1 (0.0-0.4) X10*3/uL Baso # (Auto) 0.0 (0.0-0.2) X10*3/uL Abs Immat Gran (auto) 0.02 (0.00-0.03) X10*3/uL Absolute Neuts (auto) 4.2 (2.0-8.3) x10*3/uL Absolute Nucleated RBC 0.000 (0.0-0.012) X10*3/uL Nucleated RBC % (auto) 0.0 (0.0-0.2) /100WBC Sodium 136 (135-145) mmol/L Potassium 3.8 (3.3-5.1) mmol/L Chloride 104 (96-108) mmol/L Carbon Dioxide 22 (22-29) mmol/L Anion Gap 14 (12-20) BUN 14 (9-16) mg/dL Creatinine 0.65 (0.5-1.4) mg/dL Estim Creat Clear Calc 107.0 Estimated GFR > 60 Random Glucose 87 (60-115) mg/dL Calcium 8.8 (8.4-10.2) mg/dL Total Bilirubin 0.7 (0.0-1.0) mg/dL AST 19 (5-31) U/L ALT 14 (0-31) U/L Alkaline Phosphatase 47 (39-117) U/L Total Protein 8.1 H (6.5-8.0) g/dL Albumin 4.0 (3.5-5.0) g/dL Beta HCG, Quant 36485 mIU/mL Urine Color Yellow Urine Appearance Cloudy Urine pH 5.5 (5.0-9.0) Ur Specific [place] 1.025 (1.005-1.025) Urine Protein 30 (1+) H (Neg-Trace) mg/dL Urine Glucose (UA) Negative (Negative) mg/dL Urine Ketones Negative (Negative) mg/dL Urine Blood Large (3+) H (Negative) Urine Nitrite Negative (Negative) Ur Leukocyte Esterase Trace H (Negative) Urine RBC >20 H (0-2) /HPF Urine WBC 0-5 (0-5) /HPF Ur Squamous Epith Cells 3-5 (0-2) /HPF Urine Bacteria 1+ (None Seen) Hyaline Casts 0-2 (0-2) /LPF Independent Interpretation I performed an independent interpretation of an: Ultrasound Radiology Impression Discussion of test interpretation with radiology: I have reviewed the radiologist's reading. (IMPRESSION: Single intrauterine gestational sac 1.9 cm suggesting of 5 weeks and 5 days however NO POLE OR HEART RATE DETECTED. Could be an early in the versus pseudogestation. Correlation with patient's hormonal status and Attention to follow-up recommended. Dictated B) External Record Review External record reviewed: Office record ( OBGYN) Tests considered The following testing was considered but not selected: ultrasound Discharge Plan Discharge Clinical Impression: Spotting in first trimester Patient Disposition: Home, Self-Care Instructions: First Trimester (ED), Non-Threatening First Trimester Vaginal Bleed (ED) Prescriptions: No Action prenat.vits,inocente,jex-evfq-neplx Tablet 1 tab PO DAILY Qty: 30 0RF Referrals: Erick Munoz MD [Physician] - 3 days
[2022-10-30 05:18] VITALS: BP 113/64; PULSE 67; RESP 16; TEMP 36.4; O2SAT 100
== END 2022-10-30 05:19 | disposition home or self-care (01) ==
PROVIDERS: Emergency Provider Emergency Medicine
DX: O20.9 Hemorrhage in early pregnancy, unspecified (principal); Z3A.01 Less than 8 weeks gestation of pregnancy; Z79.899 Other long term (current) drug therapy
CPT/HCPCS: 36415; 80053; 81001; 84702; 85025; 99284

== ENCOUNTER 2022-10-31 12:43 | Outpatient (REF) | payer OTHER, SELFPAY ==
--- NOTE | ~2022-10-31 | US_ITS ---
EXAMINATION: US OBSTETRICAL ULTRASOUND CLINICAL INFORMATION: First trimester spotting COMPARISON: Previous exam 10/22/2022. LMP: 09/11/2022. Gestational age by maternal dates is 7 weeks 1 day. Estimated date of delivery by maternal dates is 06/18/2023. TECHNIQUE: Transabdominal and transvaginal OB ultrasound. Transvaginal exam was performed for better visualization of the gestational sac. FINDINGS: There is a single intrauterine gestational sac with visible yolk sac, embryo/fetus, and cardiac activity. There is question of small subchorionic hemorrhage or hematoma measuring 1.3 x 0.6 x 0.8 cm HR: 146 beats per minute. CRL (crown rump length): 0.84 cm (6 weeks 6 days +/- 4 days). ROSA (estimated date of delivery): 06/20/2023 +/- 4 days. MATERNAL ADNEXA: The right maternal ovary measures 3 x 1.6 x 1.9 cm. 1.5 x 1 x 1.2 cm cyst. The left maternal ovary measures 2.3 x 1.7 x 1.7 cm. There is no significant maternal adnexal mass. No maternal pelvic ascites. US/US OB <= 14 weeks fetus IMPRESSION: 1. Single intrauterine gestation with ultrasound gestational age of 6 weeks 6 days +/- 4 days. 2. Estimated date of delivery is 06/20/2023 +/- 4 days. 3. question small subchorionic hemorrhage measuring 1.3 x 0.6 x 0.8 cm.
== END 2022-10-31 12:44 | disposition home or self-care (01) ==
LOC: HO.US 12:43
PROVIDERS: Visit Provider Obstetrics & Gynecology
DX: O26.851 Spotting complicating pregnancy, first trimester (principal); Z3A.01 Less than 8 weeks gestation of pregnancy
CPT/HCPCS: 76801; 99212

== ENCOUNTER → 2022-11-14 14:05 | Outpatient (BNVA) | payer OTHER, SELFPAY | PROVIDERS: Visit Provider Obstetrics & Gynecology | DX: Z13.89 Encounter for screening for other disorder (principal) ==

== ENCOUNTER 2023-03-02 20:26 | Emergency (ER) | payer OTHER, SELFPAY ==
--- NOTE | ~2023-03-02 | US_ITS ---
EXAMINATION: Ultrasound OB limited. CLINICAL HISTORY: The 25 weeks , bleeding. COMPARISON: Ultrasound OB 10/31/2021. TECHNIQUE: Transabdominal imaging of pelvis is performed. FINDINGS: There is a single live intrauterine fetus with a heart rate of 1 42 bpm. Diffuse in breech presentation with anterior placenta. The placenta appears unremarkable. The cervix is closed and measures 3.9 cm in length. There is normal visualization of kidneys, bladder, stomach and a four-chamber heart. US/US OB limited IMPRESSION: Single live intrauterine fetus in breech presentation. The cervix is closed and unremarkable.
[2023-03-02 20:29] VITALS: BP 127/77; PULSE 90; RESP 18; TEMP 36.5; O2SAT 97; BMI 23.3
--- NOTE | 2023-03-02 20:29 | ED_ITS ---
HPI - General Chief complaint: OB Stated complaint: vaginal bleeding Time Seen by Provider: 03/02/23 21:31 Source: patient Mode of arrival: ambulatory Limitations: no limitations History of Present Illness HPI Narrative: Patient 25 weeks primary comes here for vaginal bleeding for last 2 days blood is dark in color small amount with no significant abdominal discomfort changed 2 pads since yesterday patient blood type is O-positive patient denies any urinary symptoms feels normal movement Related Data Previous Rx's Medication Instructions Recorded prenat.vits,inocente,uqh-smer-mrhfa 1 tab PO DAILY #90 tabs 10/31/22 Allergies Allergy/AdvReac Type Severity Reaction Status Date / Time amoxicillin Allergy Hives Verified 11/14/22 14:28 Review of Systems Review of Systems: Yes all other systems are reviewed and are negative [facility] Past Medical History Medical History Acute sialoadenitis FHx: diabetes mellitus H/O spontaneous , currently Sepsis Surgical History No pertinent past surgical history Family History Family History Brother Diabetes mellitus Other No family history of coronary artery disease Social History Social History Household Members: Spouse Housing: Apartment Are you a primary care center manager to a significant other at home: No Do you presently have visiting nurse or other home services: No Alcohol intake: never Patient Tobacco Use Status: Never used Tobacco Agree to transfusion: Yes Advance Directives: No Advance Directives Information Provided: Yes service: No Current occupational status: employed Current occupation: housekeeping Current occupational exposures/hazards: No Physical Exam Vital Signs: Vital Signs: Last Vital Signs Temp 97.7 F 03/02/23 20:29 Pulse 90 03/02/23 20:29 Resp 18 03/02/23 20:29 BP 127/77 03/02/23 20:29 Pulse Ox 97 03/02/23 20:29 O2 Del Method Room Air 03/02/23 20:29 BMI result Body Mass Index 23.3 Appearance: Alert. Oriented X3. No acute distress. Eyes: No pallor ENT: Pharynx normal. Oral Mucosa moist Neck: Normal inspection. Neck supple. CVS: Normal heart rate and rhythm. Pulses normal. Respiratory: No respiratory distress. Equal air entry bilateral, Abdomen: Nontender gravid uterus, Bowel sounds are present, no mass palpable, no CVA tenderness Skin: Skin warm and dry. Normal skin color. Normal skin turgor. Extremities: No lower extremity edema. No calf tenderness Neuro: Oriented X 3. Course Course Course Narrative: This is a rapid medical exam. Deferred additional HPI, ROS, PE to primary provider. 27 yo female here with complaining of vaginal bleeding since yesterday w/ no abdominal pain currently 25 weeks ROSA 06/18/2023. Has had to use 2 pads since yesterday. OB-Followed by Mat[facility]o L[facility] at [facility]. Has not spoken to her OB about her current symptoms. Will obtain labs, UA, US, FHR (150's) VSS Medical Decision Making Lab Data MDM Lab Attestation statement: I reviewed the patient's lab results. 03/02/23 20:42 03/02/23 20:42 Labs: Lab Results 03/02/23 03/02/23 03/02/23 Range/Units 20:42 20:42 20:42 WBC 6.8 (4.8-10.8) X10*3/uL RBC 3.70 L (4.20-5.50) X10*6/uL Hgb 10.7 L (12.0-16.0) g/dl Hct 32.6 L (37.0-47.0) % MCV 88.1 (80.0-98.0) fL MCH 28.9 (27.0-33.0) pg MCHC 32.8 (31.0-35.0) g/dl RDW 13.1 (11.0-16.0) % Plt Count 205 (160-400) X10*3/uL MPV 10.3 (9.4-12.3) fL Immature Gran % (Auto) 0.9 H (0.0-0.4) % Neut % (Auto) 62.1 (45-73) % Lymph % (Auto) 25.7 (20-40) % [place] % (Auto) 9.5 (2-11) % Eos % (Auto) 1.5 (0-4) % Baso % (Auto) 0.3 (0-2) % Lymph # (Auto) 1.8 (1.2-4.9) X10*3/uL [place] # (Auto) 0.7 (0.1-1.2) X10*3/uL Eos # (Auto) 0.1 (0.0-0.4) X10*3/uL Baso # (Auto) 0.0 (0.0-0.2) X10*3/uL Abs Immat Gran (auto) 0.06 H (0.00-0.03) X10*3/uL Absolute Neuts (auto) 4.2 (2.0-8.3) x10*3/uL Absolute Nucleated RBC 0.000 (0.0-0.012) X10*3/uL Nucleated RBC % (auto) 0.0 (0.0-0.2) /100WBC Sodium 137 (135-145) mmol/L Potassium 3.6 (3.3-5.1) mmol/L Chloride 105 (96-108) mmol/L Carbon Dioxide 24 (22-29) mmol/L Anion Gap 12 (12-20) BUN 12 (9-16) mg/dL Creatinine 0.71 (0.5-1.4) mg/dL Estim Creat Clear Calc 109.0 Estimated GFR > 60 Random Glucose 84 (60-115) mg/dL Calcium 9.1 (8.4-10.2) mg/dL Total Bilirubin 0.6 (0.0-1.0) mg/dL Direct Bilirubin 0.1 (0.0-0.5) mg/dL AST 24 (5-31) U/L ALT 13 (0-31) U/L Alkaline Phosphatase 44 (39-117) U/L Total Protein 8.1 H (6.5-8.0) g/dL Albumin 3.3 L (3.5-5.0) g/dL Beta HCG, Quant 46705 mIU/mL Urine Color Urine Appearance Urine pH (5.0-9.0) Ur Specific [place] (1.005-1.025) Urine Protein (Neg-Trace) mg/dL Urine Glucose (UA) (Negative) mg/dL Urine Ketones (Negative) mg/dL Urine Blood (Negative) Urine Nitrite (Negative) Ur Leukocyte Esterase (Negative) 03/02/23 Range/Units 21:44 WBC (4.8-10.8) X10*3/uL RBC (4.20-5.50) X10*6/uL Hgb (12.0-16.0) g/dl Hct (37.0-47.0) % MCV (80.0-98.0) fL MCH (27.0-33.0) pg MCHC (31.0-35.0) g/dl RDW (11.0-16.0) % Plt Count (160-400) X10*3/uL MPV (9.4-12.3) fL Immature Gran % (Auto) (0.0-0.4) % Neut % (Auto) (45-73) % Lymph % (Auto) (20-40) % [place] % (Auto) (2-11) % Eos % (Auto) (0-4) % Baso % (Auto) (0-2) % Lymph # (Auto) (1.2-4.9) X10*3/uL [place] # (Auto) (0.1-1.2) X10*3/uL Eos # (Auto) (0.0-0.4) X10*3/uL Baso # (Auto) (0.0-0.2) X10*3/uL Abs Immat Gran (auto) (0.00-0.03) X10*3/uL Absolute Neuts (auto) (2.0-8.3) x10*3/uL Absolute Nucleated RBC (0.0-0.012) X10*3/uL Nucleated RBC % (auto) (0.0-0.2) /100WBC Sodium (135-145) mmol/L Potassium (3.3-5.1) mmol/L Chloride (96-108) mmol/L Carbon Dioxide (22-29) mmol/L Anion Gap (12-20) BUN (9-16) mg/dL Creatinine (0.5-1.4) mg/dL Estim Creat Clear Calc Estimated GFR Random Glucose (60-115) mg/dL Calcium (8.4-10.2) mg/dL Total Bilirubin (0.0-1.0) mg/dL Direct Bilirubin (0.0-0.5) mg/dL AST (5-31) U/L ALT (0-31) U/L Alkaline Phosphatase (39-117) U/L Total Protein (6.5-8.0) g/dL Albumin (3.5-5.0) g/dL Beta HCG, Quant mIU/mL Urine Color Yellow Urine Appearance Cloudy Urine pH 7.0 (5.0-9.0) Ur Specific [place] 1.020 (1.005-1.025) Urine Protein Negative (Neg-Trace) mg/dL Urine Glucose (UA) Negative (Negative) mg/dL Urine Ketones Negative (Negative) mg/dL Urine Blood Negative (Negative) Urine Nitrite Negative (Negative) Ur Leukocyte Esterase Negative (Negative) Radiology Impression Discussion of test interpretation with radiology: I have reviewed the radiologist's reading. Radiologist Impression: EXAMINATION: Ultrasound OB limited. CLINICAL HISTORY: The 25 weeks , bleeding. COMPARISON: Ultrasound OB 10/31/2021. TECHNIQUE: Transabdominal imaging of pelvis is performed. FINDINGS: There is a single live intrauterine fetus with a heart rate of 1 42 bpm. Diffuse in breech presentation with anterior placenta. The placenta appears unremarkable. The cervix is closed and measures 3.9 cm in length. There is normal visualization of kidneys, bladder, stomach and a four-chamber heart. US/US OB limited IMPRESSION: Single live intrauterine fetus in breech presentation. ? The cervix is closed and unremarkable. ? Discharge Plan Discharge Clinical Impression: Vaginal bleeding during Patient Disposition: Home, Self-Care Instructions: Threatened Miscarriage (ED) Additional Instructions: Follow-up with your OBG Report to ER if worsening of bleed Prescriptions: No Action prenat.vits,inocente,ssa-dsmr-diawd Tablet 1 tab PO DAILY Qty: 90 2RF Interventions: ED Discharge Assessment Last Done: 03/02/23 22:40 Discharge Date/Time: 03/02/23 22:41 Print Language: Yoruba
[2023-03-02 20:46] LABS: MANUAL DIFF FLAG NO
[2023-03-02 20:48] LABS: Basophils Percent Auto 0.3 % (0-2); Eosinophils Absolute Auto 0.1 X10*3/uL (0.0-0.4); Eosinophils Percent Auto 1.5 % (0-4); Hematocrit 32.6 % (37.0-47.0); Hemoglobin 10.7 g/dl (12.0-16.0); Imm Gran Abs Auto 0.06 X10*3/uL (0.00-0.03); Imm Gran Pct Auto 0.9 % (0.0-0.4); Lymphocytes Absolute Auto 1.8 X10*3/uL (1.2-4.9); Lymphocytes Percent Auto 25.7 % (20-40); Mean Corpuscular HGB Conc 32.8 g/dl (31.0-35.0); Mean Corpuscular Hemoglobin 28.9 pg (27.0-33.0); Mean Corpuscular Volume 88.1 fL (80.0-98.0); Mean Platelet Volume 10.3 fL (9.4-12.3); Monocytes Absolute Auto 0.7 X10*3/uL (0.1-1.2); Monocytes Percent Auto 9.5 % (2-11); Neutrophils Absolute Auto 4.2 x10*3/uL (2.0-8.3); Neutrophils Percent Auto 62.1 % (45-73); Platelet Count 205 X10*3/uL (160-400); Red Cell Distribution Width 13.1 % (11.0-16.0); White Blood Count 6.8 X10*3/uL (4.8-10.8)
[2023-03-02 21:02] LABS: Alanine Aminotransferase 13 U/L (0-31); Albumin Level 3.3 g/dL (3.5-5.0); Alkaline Phosphatase 44 U/L (39-117); Anion Gap 12 (12-20); Aspartate Amino Transferase 24 U/L (5-31); Bilirubin Direct 0.1 mg/dL (0.0-0.5); Bilirubin Total 0.6 mg/dL (0.0-1.0); Blood Urea Nitrogen 12 mg/dL (9-16); Calcium 9.1 mg/dL (8.4-10.2); Carbon Dioxide 24 mmol/L (22-29); Chloride 105 mmol/L (96-108); Estimated Glomerular Filt Rate > 60; Glucose Random 84 mg/dL (60-115); Potassium 3.6 mmol/L (3.3-5.1); Sodium 137 mmol/L (135-145); Total Protein 8.1 g/dL (6.5-8.0)
[2023-03-02 21:12] LABS: HCG Quantitative 12380 mIU/mL
[2023-03-02 21:51] LABS: Appearance Urine Cloudy; Color Urine Yellow; Glucose Urine UA Negative (Negative); Leukocyte Esterase Urine Negative (Negative); Nitrite Urine Negative (Negative); Urine Blood Negative (Negative); Urine Ketones Negative (Negative); Urine Protein Negative (Neg-Trace)
== END 2023-03-02 22:41 | disposition home or self-care (01) ==
PROVIDERS: Nurse Practitioner Family; Emergency Provider Internal Medicine
DX: O20.9 Hemorrhage in early pregnancy, unspecified (principal); Z3A.25 25 weeks gestation of pregnancy; Z79.899 Other long term (current) drug therapy
CPT/HCPCS: 36415; 76815; 80048; 80076; 81003; 84702; 85025; 99282; 99283; 99284

== ENCOUNTER 2024-09-29 09:03 | Emergency (ER) | payer OTHER, SELFPAY ==
--- NOTE | ~2024-09-29 | XR_ITS ---
CLINICAL HISTORY: pain Radiographs of the left shoulder, 3 views, 4 images Comparison: None Findings: No fracture or dislocation. Normal acromiohumeral interval. The joint spaces are preserved without osteophytosis. Bone mineralization is normal. No soft tissue swelling. Impression: No acute findings. This document has been electronically signed by: Jyoti Kennedy MD on 09/29/2024 13:35:21
[2024-09-29 09:34] VITALS: BP 131/84; PULSE 78; RESP 18; TEMP 36.4; O2SAT 99; BMI 26.5
[2024-09-29 11:49] VITALS: BP 122/79; PULSE 77; RESP 18; TEMP 36.7; O2SAT 97
--- NOTE | 2024-09-29 11:49 | ED.EXTPRO ---
HPI - Extremity Problem General Chief complaint: Extremity Injury, Upper Stated complaint: L shoulder pain Time Seen by Provider: 09/29/24 12:18 Source: patient Mode of arrival: ambulatory Limitations: no limitations History of Present Illness ED Provider: RASHMI BUSBY PA-C HPI Narrative: 29 year old Citizen [place] speaking female with no significant past medical history presents to the ED today for evaluation of atraumatic left shoulder pain x2 days. She reports waking up with the pain 2 days ago. Since onset, pain has increased and is now moving down towards her elbow. She reports difficulty lifting her arm due to the pain. Denies any injury or trauma. No history of similar. 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 She did not trial any yvat-lwq-xrkewwl analgesics prior to arrival. She did try icing the area with minimal improvement. Denies neck pain, headache, dizziness, chest pain, shortness of breath, palpitations. Denies fever, chills. Related Data Previous Rx's ?Medication ?Instructions ?Recorded prenat.vits,inocente,ill-rrdy-ncwbg 1 tab PO DAILY #90 tabs 10/31/22 naproxen 500 mg tablet 500 mg PO Q12H PRN pain (scale 09/29/24 score 1-3) #20 tabs prednisone 20 mg tablet 40 mg (2 x 20 mg) PO DAILY 4 days 09/29/24 #8 tabs Allergies Allergy/AdvReac Type Severity Reaction Status Date / Time amoxicillin Allergy Hives Verified 09/29/24 09:35 Review of Systems Review of Systems: Constitutional: No fever, chills, fatigue, night sweats, weight changes ENT/Mouth: No ear pain, hearing loss, nasal congestion, sinus pain, rhinorrhea, sore throat Eyes: No eye pain, swelling, redness, vision changes, discharge Cardio: No chest pain, palpitations, CASEY, orthopnea, peripheral edema Pulm: No SOB, cough, sputum, wheezing, dyspnea, hemoptysis GI: No nausea, vomiting, hematemesis, abdominal pain, diarrhea, constipation, hematochezia, melena : No irregular bleeding, dysuria, frequency, urgency, hesitancy, hematuria, flank pain, urinary flow changes, urinary incontinence or retention MSK: No back pain, neck pain, joint pain, myalgias, +left shoulder pain Skin: No lesions, rashes Neuro: No weakness, numbness, paresthesias, LOC, dizziness, headache Psych: No anxiety/panic, depression, SI/HI, AH/VH All other systems reviewed and are negative. [facility] Past Medical History Attestation statement: The following information was validated with the patient. Source: old records reviewed and nursing notes reviewed Medical History H/O spontaneous , currently FHx: diabetes mellitus Sepsis Acute sialoadenitis Surgical History No pertinent past surgical history Family History Family History Brother Diabetes mellitus Other No family history of coronary artery disease Social History Social History Household Members: Spouse Housing: Apartment Are you a primary home care consultant to a significant other at home: No Do you presently have visiting nurse or other home services: No Alcohol intake: never Patient Tobacco Use Status: Never used Tobacco Smoked in Last 30 Days: No Use of substances other than those prescribed or required for medical reasons: No Agree to transfusion: Yes Advance Directives: No Advance Directives Information Provided: No Do you have a plan to hurt others: No Plan service: No Current occupational status: employed Current occupation: housekeeping Current occupational exposures/hazards: No Physical Exam Vital Signs: Vital Signs: Last Vital Signs Temp 98.0 F 09/29/24 11:49 Pulse 77 09/29/24 11:49 Resp 18 09/29/24 11:49 BP 122/79 09/29/24 11:49 Pulse Ox 97 09/29/24 11:49 O2 Del Method Room Air 09/29/24 11:49 BMI result Body Mass Index 26.5 vital signs stable General: Well appearing, in no acute distress. Skin: Warm, dry, intact. No rashes or lesions. Head: Normocephalic, atraumatic. EENT: Hearing is intact b/l. Conjunctiva clear. PERRLA. EOM intact. Moist mucous membranes.? Neck: no midline cervical or paraspinal muscle tenderness to palpation. Cardiac: Chest wall symmetric. RRR Lungs: Normal respiratory effort without accessory muscle use. CTA bilaterally Back: No midline spinous or paraspinal tenderness. No step off deformity. Ext: +no overlying swelling/deformity/erythema to right shoulder. No deformity. Notable decreased ROM of left shoulder to extension and abduction. pain noted on extension against resistance. no palpable tenderness/ deformity. no warmth. no streaking. plaster applicator strength intact. 2+ radial/ulnar pulse intact. sensation intact. Neuro: AOx3. Normal speech. Strength 5/5 intact throughout. Sensation intact to light touch. NV intact distally. Ambulating with steady gait. Psych: Appropriate mood and affect. Responds appropriately to questions. Course Course Course Narrative: This is an RME performed by Jennifer Mosqueda CNP: Additional HPI, ROS, PE not included below will be deferred to primary provider. Patient is a 29-year-old female presents emergency department for evaluation of 2 days with pain extending from the left shoulder down towards the elbow. Initially it was mild but has since increased, reproducible with movement. On exam she is notable decreased range of motion with forward extension and abduction. 2+ radial pulse. Denies any known precipitating injury. She awoke with this pain. Denies history of similar pain previously. She did not try any OTC analgesics, she did place ice to the area with minimal improvement. Denies associated neck pain, dizziness, headache, chest pain or shortness of breath. Plan: XR left shoulder, ibuprofen Reevaluation(s) Reevaluation #1: 1411 -- x-ray left shoulder unremarkable. Her exam is concerning for tendonitis. Will send naproxen and prednisone to pharmacy. Patient agreeable. placed in sling for comfort however advised to move her arm around multiple times daily to prevent frozen shoulder. Patient has remained stable throughout ED visit today. Discussed worrisome signs and symptoms and when to return to the ED. All questions answered at this time. Patient is agreeable with disposition and stable for discharge. Medications Administered Discontinued Medications Generic Name Dose Route Start Last Admin Trade Name Freq PRN Reason Stop Dose Admin Ibuprofen 600 mg 09/29/24 11:52 09/29/24 11:55 Ibuprofen 600 Mg Tablet PO 09/29/24 11:53 600 mg ONCE ONE Administration Medical Decision Making Medical Decision Making MDM Narrative: 29 year old Citizen [place] speaking female with no significant past medical history presents to the ED today for evaluation of atraumatic left shoulder pain x2 days. VSS. Exam without any overlying swelling/deformity/erythema to right shoulder. No deformity. Notable decreased ROM of left shoulder to extension and abduction. pain noted on extension against resistance. no palpable tenderness/ deformity. no warmth. no streaking. plaster applicator strength intact. 2+ radial/ulnar pulse intact. sensation intact. Differential diagnosis includes tendonitis, bursitis, msk sprain/strain, rotator cuff injury, arthritis, fracture, dislocation, cervical radiculopathy. Unlikely NV compromise, threat to limb, compartment syndrome. Unlikely ACS. Plan for xrays, pain control, re-evaluation. Differential Diagnosis Differential Diagnoses: The differential diagnosis associated with the presentation includes as above. Admission/Observation not indicated. Independent Interpretation I performed an independent interpretation of an: Plain X-Ray Interpretation: XR left shoulder without fracture Radiology Impression Discussion of test interpretation with radiology: I have reviewed the radiologist's reading. Radiologist Impression: Ordering Physician: Silvia Mosqueda CNP Date of Service: 09/29/24 Procedure(s): XR shoulder LT min 2V Accession Number(s): [id number] cc: Silvia Mosqueda CNP; Physician,None ~ CLINICAL HISTORY: pain Radiographs of the left shoulder, 3 views, 4 images Comparison: None Findings: No fracture or dislocation. Normal acromiohumeral interval. The joint spaces are preserved without osteophytosis. Bone mineralization is normal. No soft tissue swelling. Impression: No acute findings. This document has been electronically signed by: Jyoti Kennedy MD on 09/29/2024 13:35:21 External Record Review External record reviewed: Inpatient record Prescription Management I considered prescription management with: Pain Medication and Other (prednisone) Social Determinants Patient?s care significantly limited by Social Determinants of Health including: Other Social Determinant of Health Critical Care Time Critical Care Time Critical Care Time: No Discharge Plan Discharge Clinical Impression: Biceps tendinitis of left shoulder Patient Disposition: Home, Self-Care Instructions: Tendinitis (ED) Additional Instructions: Naproxen is an anti-inflammatory pain medication that has been sent to your pharmacy for you to take as needed for pain. Prednisone is a steroid that has been sent to your pharmacy for you to take over the next 4 days for inflammation. You received a dose of this in the ED today. Take your next dose tomorrow. You have been provided with a sling for comfort. As discussed, remove your arm from the sling and move the arm around multiple times a day to prevent frozen shoulder. Follow up with your primary care provider. I have also sent you a referral to an environmental monitoring specialist. You may follow-up with them. Call them to establish care. They will not call you. Return with new or worsening symptoms. In the case of an emergency call 911. Prescriptions: New naproxen 500 mg tablet 500 mg PO Q12H PRN (Reason: pain (scale score 1-3)) Qty: 20 0RF prednisone 20 mg tablet 40 mg PO DAILY 4 Days Qty: 8 0RF No Action prenat.vits,inocente,yku-kvyc-dwxsg Tablet 1 tab PO DAILY Qty: 90 2RF Stand Alone Forms: Work/School Release Print Language: Citizen [place]
[2024-09-29] MEDS: Ibuprofen 600 MG TABLET PO (11:55)
[2024-09-29 14:13] VITALS: BP 113/73; PULSE 78; RESP 18; TEMP 36.7; O2SAT 100
[2024-09-29] MEDS: predniSONE 20 MG TABLET 40 MG PO (14:18)
[2024-09-29 14:28] VITALS: BP 113/73; PULSE 78; RESP 18; TEMP 36.7; O2SAT 100
== END 2024-09-29 14:29 | disposition home or self-care (01) ==
PROVIDERS: Emergency Provider Emergency Medicine
DX: M75.32 Calcific tendinitis of left shoulder (principal); M25.512 Pain in left shoulder
CPT/HCPCS: 73030; 99283; 99284

== ENCOUNTER → 2024-09-29 11:53 | Outpatient (BNV) | payer OTHER, SELFPAY | PROVIDERS: Emergency Provider Emergency Medicine; Visit Provider Radiology Diagnostic Radiology | DX: R52 Pain, unspecified (principal) | CPT/HCPCS: 73030 ==

== ENCOUNTER 2025-01-23 15:50 | Emergency (ER) | payer OTHER, SELFPAY ==
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
[2025-01-23 16:05] VITALS: BP 130/80; PULSE 100; O2SAT 98
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
[2025-01-23 16:37] VITALS: BP 108/72; PULSE 75; RESP 16; TEMP 36.1; O2SAT 99
[2025-01-23 16:49] LABS: MANUAL DIFF FLAG NO
[2025-01-23] MEDS: Acetaminophen 1,000 MG/100 ML PIGGYBACK 400 MG IV (16:51)
[2025-01-23 16:53] LABS: Basophils Percent Auto 0.2 % (0-2); Eosinophils Absolute Auto 0.1 X10*3/uL (0.0-0.4); Eosinophils Percent Auto 1.2 % (0-4); Hematocrit 35.7 % (37.0-47.0); Imm Gran Abs Auto 0.01 X10*3/uL (0.00-0.03); Imm Gran Pct Auto 0.2 % (0.0-0.4); Lymphocytes Absolute Auto 1.3 X10*3/uL (1.2-4.9); Lymphocytes Percent Auto 26.9 % (20-40); Mean Corpuscular HGB Conc 33.6 g/dl (31.0-35.0); Mean Corpuscular Volume 83.4 fL (80.0-98.0); Mean Platelet Volume 10.6 fL (9.4-12.3); Monocytes Absolute Auto 0.4 X10*3/uL (0.1-1.2); Monocytes Percent Auto 7.1 % (2-11); Neutrophils Absolute Auto 3.2 x10*3/uL (2.0-8.3); Neutrophils Percent Auto 64.4 % (45-73); Platelet Count 189 X10*3/uL (160-400); Red Blood Count 4.28 X10*6/uL (4.20-5.50); Red Cell Distribution Width 12.3 % (11.0-16.0); White Blood Count 4.9 X10*3/uL (4.8-10.8)
[2025-01-23 17:03] VITALS: BMI 24.9
[2025-01-23 17:17] LABS: Alanine Aminotransferase 8 U/L (0-31); Albumin Level 3.5 g/dL (3.5-5.0); Alkaline Phosphatase 64 U/L (39-117); Anion Gap 11 (12-20); Aspartate Amino Transferase 21 U/L (5-31); Bilirubin Total 0.3 mg/dL (0.0-1.0); Blood Urea Nitrogen 10 mg/dL (9-16); Calcium 8.7 mg/dL (8.4-10.2); Carbon Dioxide 25 mmol/L (22-29); Chloride 107 mmol/L (96-108); Estimated Glomerular Filt Rate > 60; Glucose Random 99 mg/dL (60-115); Potassium 3.7 mmol/L (3.3-5.1); Sodium 139 mmol/L (135-145); Total Protein 7.9 g/dL (6.5-8.0)
[2025-01-23 17:18] LABS: HCG Quantitative < 2 mIU/mL
[2025-01-23] MEDS: iohexoL 350 MG/ML 100 ML INFUS..BTL IV (17:54)
[2025-01-23 18:16] VITALS: BP 104/62; PULSE 72; RESP 20; TEMP 36.2; O2SAT 99
[2025-01-23 19:46] VITALS: BP 104/62; PULSE 72; RESP 20; TEMP 36.2; O2SAT 99
== END 2025-01-23 19:46 | disposition home or self-care (01) ==
PROVIDERS: Physician Assistant Medical; Emergency Provider Emergency Medicine Emergency Medical Services
DX: S22.20XA Unspecified fracture of sternum, initial encounter for closed fracture (principal); S39.012A Strain of muscle, fascia and tendon of lower back, initial encounter; S16.1XXA Strain of muscle, fascia and tendon at neck level, initial encounter; V43.52XA Car driver injured in collision with other type car in traffic accident, initial encounter; Y93.89 Activity, other specified; Y92.414 Local residential or business street as the place of occurrence of the external cause; Y99.9 Unspecified external cause status
CPT/HCPCS: 36415; 70450; 71260; 72125; 80053; 84702; 85025; 96365; 99284; 99285; J0131; Q9967

== ENCOUNTER → 2025-01-23 16:30 | Outpatient (BNV) | payer OTHER, SELFPAY | PROVIDERS: Emergency Provider Emergency Medicine Emergency Medical Services; Visit Provider Radiology Diagnostic Radiology | DX: R07.89 Other chest pain (principal); M54.2 Cervicalgia; V89.0XXA Person injured in unspecified motor-vehicle accident, nontraffic, initial encounter | CPT/HCPCS: 70450; 71260; 72125 ==